=== PATIENT | female | born 1945 | race Caucasian/White ===

== ENCOUNTER 2019-11-11 09:00 | Outpatient (CLI) | payer MEDICARE, SELFPAY ==
--- NOTE | ~2019-11-11 | DEXA_ITS ---
Bone Density Report Name: Annabelle Peraza Age: 74 Sex: Female Ethnicity: White Date of : 1945 Indication: monitoring treatment; height loss; cancer; asthma or emphysema; Referring Provider: Ada Martinez Study: Bone densitometry was performed. Exam Date: November 11, 2019 Accession number: [id number] Bone Density: Region BMD T-score Z-score Classification AP Spine (L1, L2) 0.994 0.1 2.4 Normal Femoral Neck (Left) 0.750 -0.9 1.2 Normal Total Hip (Left) 0.798 -1.2 0.7 Osteopenia Total Hip Bilateral Avg 0.783 -1.3 0.6 Osteopenia Femoral Neck (Right) 0.701 -1.3 0.8 Osteopenia Total Hip (Right) 0.768 -1.4 0.4 Osteopenia World Health Organization criteria for BMD impression classify patients as: Normal (T-score at or above -1.0), Osteopenia (T-score between -1.0 and -2.5), or Osteoporosis (T-score at or below -2.5). 10-year Fracture Risk: FRAX not reported because: Treated for osteoporosis Previous Exams: Region Exam Age BMD T-score BMD Change BMD Change Date g/cm2 vs Baseline vs Previous AP Spine(L1, L2) 11/11/2019 74 0.994 0.1 0.059(6.3%)# 0.059(6.3%)# 02/11/2009 63 0.935 -0.4 Total Hip(Left) 11/11/2019 74 0.798 -1.2 -0.065(-7.6%)# -0.065(-7.6%)# 02/11/2009 63 0.864 -0.6 Total Hip(Right) 11/11/2019 74 0.768 -1.4 -0.066(-7.9%)# -0.066(-7.9%)# 02/11/2009 63 0.835 -0.9 *Denotes significance at 95% confidence level, LSC for AP Spine = 0.022 g/cm2, LSC for Total Hip = 0.027 g/cm2 Clinical Information Provided by Patient: Is being treated for osteoporosis Has the following medical conditions: Asthma or Emphysema, Cancer Patient maximum height was 62 Menopause Age: 41 No regular weight bearing exercise Drinks caffeinated beverages Onset of menses at age 12 Number of children 3 Impression: The patient has low bone mass, based on the Right Total Hip T-score. No significant bone loss was observed. Discussion: PATIENT UNDER TREATMENT WITH NO SIGNIFICANT BMD LOSS SINCE LAST EXAM. In an untreated patient, BMD typically declines with age. A lack of decline or gain is usually a sign that treatment is efficacious and fracture risk is reduced. It is important to ask patients whether they are taking their medications and to encourage continued and appropriate compliance with their osteoporosis therapies to reduce fracture risk. It is also important to review their risk factors and encourage appropriate calcium and vitamin D intakes, exe
== END 2019-11-11 09:01 | disposition home or self-care (01) ==
LOC: ANHIMG 09:06
PROVIDERS: PCP Family Medicine; Visit Provider Family Medicine
DX: Z78.0 Asymptomatic menopausal state (principal); M85.89 Other specified disorders of bone density and structure, multiple sites
CPT/HCPCS: 77080

== ENCOUNTER 2019-12-16 10:18 | Outpatient (CLI) | payer MEDICARE, SELFPAY ==
--- NOTE | ~2019-12-16 | MM_ITS ---
EXAMINATION: MM screening [facility] BI w fito HISTORY: Screening mammogram TECHNIQUE: Craniocaudal and mediolateral oblique 3-D tomosynthesis images were obtained and synthetic 2-D images were generated. CAD analysis was submitted and interpreted. COMPARISON: 12/06/2018, 12/04/2017, 11/21/2016 BREAST PARENCHYMAL COMPOSITION: There are scattered areas of fibroglandular density. FINDINGS: Scattered benign-appearing calcifications are present. There is no evidence of suspicious m ass, calcification, or architectural distortion to suggest malignancy in either breast. There has bee n no suspicious interval change. IMPRESSION: 1. No mammographic evidence of malignancy. 2. Recommend routine screening mammography in one year. BI-RADS Category 2: Benign finding(s). Reviewed, dictated and finalized at location A.
== END 2019-12-16 10:19 | disposition home or self-care (01) ==
LOC: ANHIMG 10:21
PROVIDERS: PCP Family Medicine
DX: Z12.31 Encounter for screening mammogram for malignant neoplasm of breast (principal)
CPT/HCPCS: 77063; 77067

== ENCOUNTER 2020-03-25 12:27 | Outpatient (CLI) | payer MEDICARE, SELFPAY ==
--- NOTE | ~2020-03-25 | CT_ITS ---
EXAMINATION: CT lung screening DATE: 03/25/2020 12:52 INDICATION: Personal history of nicotine dependence TECHNIQUE: Computed tomography (CT) of the chest was performed without intravenous contrast. The dose -length product was 102.25 mGy-cm. Automated exposure control and iterative reconstruction technique were employed. COMPARISON: CT dated 05/13/2019 FINDINGS: Severe emphysema. Scattered calcified pulmonary nodules and right hilar lymph nodes, consis tent with chronic granulomatous disease. There is atherosclerosis of the aorta and coronary arteries. Heart size normal. No significant pleural or pericardial effusion. There is left upper lobe scarring unchanged. There is a 4 mm) fissural nodule unchanged, image 56. No endobronchial lesions. Mild thor acic spondylosis. There are cholecystectomy changes. IMPRESSION: 1. Lung-RADS category 2: Benign appearance or behavior. Continue annual screening with noncontrast lo w-dose chest CT in 12 months. Reviewed, dictated and finalized at location A. IMPRESSION: 1. Lung-RADS category 2: Benign appearance or behavior. Continue annual screeni ng with noncontrast low-dose chest CT in 12 months.
== END 2020-03-25 12:28 | disposition home or self-care (01) ==
PROVIDERS: PCP Family Medicine; Visit Provider Nurse Practitioner Family
DX: Z12.2 Encounter for screening for malignant neoplasm of respiratory organs (principal); Z87.891 Personal history of nicotine dependence
CPT/HCPCS: G0297

== ENCOUNTER 2020-10-19 10:17 | Outpatient (CLI) | payer MEDICARE, SELFPAY ==
--- NOTE | ~2020-10-19 | US_ITS ---
EXAMINATION: US carotid duplex BI DATE: 10/19/2020 11:02 INDICATION: Unspecified symptoms and signs involving the circulatory system. TECHNIQUE: Grayscale, color Doppler, and pulsed Doppler images of the cervical carotid arteries were obtained. The degree of vessel stenosis is placed in one of the following categories: normal, <50%, 5 0-69%, >=70% but less than near-occlusion, near-occlusion, or total occlusion. Note that percent sten osis relative to normal distal artery lumen diameter is indirectly measured from velocity measurement s as described by Channing, et al. Radiology 2003; 229:340-346. COMPARISON: None. FINDINGS: RIGHT: The right common carotid artery (CCA) peak systolic velocity (PSV) is 51 cm/s. The right internal car otid artery (ICA) PSV is 45 cm/s. The right ICA end-diastolic velocity (EDV) is 14 cm/s. The right IC A/CCA PSV ratio is 0.9. The ICA lumen is obscured by shadowing plaque. There is antegrade flow in the right vertebral artery. LEFT: The left CCA PSV is 87 cm/s. The left ICA PSV is 182 cm/s. The left ICA EDV is 42 cm/s. The left ICA/ CCA PSV ratio is 2.1. Grayscale and color Doppler images yield an estimate of >=50% diameter reductio n from plaque in the ICA. There is antegrade flow in the left vertebral artery. IMPRESSION: 1. <50% stenosis in the right internal carotid artery. 2. 50-69% stenosis in the left internal carotid artery. Reviewed, dictated and finalized at location B.
== END 2020-10-19 10:18 | disposition home or self-care (01) ==
PROVIDERS: PCP Internal Medicine; Visit Provider Internal Medicine
DX: I65.23 Occlusion and stenosis of bilateral carotid arteries (principal)
CPT/HCPCS: 93880

== ENCOUNTER 2021-01-27 09:34 | Outpatient (CLI) | payer MEDICARE, SELFPAY ==
--- NOTE | ~2021-01-27 | US_ITS ---
US retroperitoneal comp 01/27/2021 13:58 Procedure: Realtime transabdominal ultrasound of the kidneys and bladder. Indication: Chronic kidney disease Comparison: 10/19/2014 Findings: Renal echotexture is normal bilaterally without hydronephrosis, contour deforming mass or r enal calculus. The right kidney measures 11.6 cm and left kidney measures 10.8 cm. Bladder is not we ll distended for evaluation. Impression: 1: Unremarkable renal ultrasound. No stones, masses or hydronephrosis. Reviewed, dictated and finalized at location A. Impression: 1: Unremarkable renal ultrasound. No stones, masses or hydronephrosis.
--- NOTE | ~2021-01-27 | MM_ITS ---
EXAMINATION: MM screening [facility] BI w fito HISTORY: Screening mammogram TECHNIQUE: Craniocaudal and mediolateral oblique 3-D tomosynthesis images were obtained and synthetic 2-D images were generated. CAD analysis was submitted and interpreted. COMPARISON: 620 , 12/06/2018, 12/04/2017 bilateral digital screening mammogram examinations BREAST PARENCHYMAL COMPOSITION: There are scattered areas of fibroglandular density. FINDINGS: Biopsy marker on the right; history of prior benign right breast biopsy. Scattered bilateral benign calcifications. Possible 5 mm mass anterior upper mid left breast (MLO Tomosynthesis image 30/71). Diagnostic left ma mmogram and possibly left breast ultrasound examination are recommended. Otherwise there is no evidence of suspicious mass, calcification, or architectural distortion to sugg est malignancy in either breast. There has been no other suspicious interval change. IMPRESSION: 1. Possible 5 mm left breast mass 2. Diagnostic left mammogram and possible left breast ultrasound examination are recommended BI-RADS Category 0: Incomplete: Needs additional imaging evaluation. Reviewed, dictated and finalized at location A. IMPRESSION: 1. Possible 5 mm left breast mass 2. Diagnostic left mammogram and possible left breast ultrasound examination ar ruby recommended BI-RADS Category 0: Incomplete: Needs additional imaging evaluation.
== END 2021-01-27 09:35 | disposition home or self-care (01) ==
PROVIDERS: PCP Internal Medicine; Visit Provider Internal Medicine
DX: Z12.31 Encounter for screening mammogram for malignant neoplasm of breast (principal); R92.8 Other abnormal and inconclusive findings on diagnostic imaging of breast; N18.9 Chronic kidney disease, unspecified
CPT/HCPCS: 76770; 77063; 77067

== ENCOUNTER 2021-02-27 00:23 | Inpatient (IN) | payer MEDICARE, SELFPAY ==
[2021-02-27] VITALS (28 sets, daily range): BP systolic 90–134; BP diastolic 49–98; PULSE 82–120; RESP 17–34; TEMP 36.6–36.8; O2SAT 82–96; BMI 28.8
--- NOTE | ~2021-02-27 | XR_ITS ---
EXAMINATION: XR abdomen NG/feed tube insert DATE: 03/02/2021 09:45 INDICATION: Feeding tube placement TECHNIQUE: A supine view of the abdomen and lower chest was obtained for evaluation of feeding tube placement. COMPARISON: None. FINDINGS: Feeding tube tip in proximal side port in the body of the stomach. Paucity of bowel gas in the visual ized abdomen. Cholecystectomy clips in the right upper quadrant. Coarse reticular opacities in the mi d and lower lung zones consistent with pulmonary edema and/or pneumonia superimposed over emphysema. Heart size is normal. IMPRESSION: 1. Feeding tube tip in the stomach. 2. Diffuse bilateral lung disease which could represent pulmonary edema and/or pneumonia superimposed over emphysema. Reviewed, dictated and finalized at location A.
--- NOTE | ~2021-02-27 | XR_ITS ---
EXAMINATION: XR chest 1V portable EXAM DATE: 03/01/2021 05:32 INDICATION: COVID pneumonia, hypoxia. Hypoxia. TECHNIQUE: Portable AP frontal chest x-ray was obtained. Comparison is made to prior examination from 02/27/2021. FINDINGS: Diffuse abnormal reticulation superimposed on known emphysema and chronic hyperinflation. T his appears stable or with slight interval progression. Probably edema and/or pneumonia. No pneumotho rax or pleural effusion. Cardiomediastinal silhouette is normal. There are no osseous abnormalities i dentified. IMPRESSION: 1. Diffuse abnormal reticulation, edema and/or pneumonia. 2. Emphysema. Hyperinflation. Reviewed, dictated and finalized at location D.
--- NOTE | ~2021-02-27 | XR_ITS ---
EXAMINATION: XR chest 1V portable INDICATION: Respiratory failure TECHNIQUE: Portable AP chest at 0815 hours COMPARISON: 03/03/2021 FINDINGS: The endotracheal tube ends approximately 5.7 cm above the cyril. The nasogastric tube is f ollowed as far as the stomach. Its tip is beyond the inferior margin of the radiograph. A right upper extremity PICC has been inserted which ends with its tip in the midsuperior vena cava. A small right pleural effusion is present. There is no pneumothorax. Right basilar airspace opacities persist with slight worsening. Other diffuse airspace opacities are not significantly changed. IMPRESSION: 1. Worsening opacities of the right lung base, consistent with atelectasis versus pneumonia. 2. Otherwise stable diffuse lung disease, consistent with pneumonia and/or pulmonary edema and/or acu te respiratory distress syndrome (ARDS). 3. Right upper extremity PICC insertion. Reviewed, dictated and finalized at location A. IMPRESSION: 1. Worsening opacities of the right lung base, consistent with atelectasis vers us pneumonia. 2. Otherwise stable diffuse lung disease, consistent with pneumonia and/or pulm onary edema and/or acute respiratory distress syndrome (ARDS). 3. Right upper extremity PICC insertion.
--- NOTE | ~2021-02-27 | XR_ITS ---
EXAMINATION: XR chest 1V portable INDICATION: Respiratory failure TECHNIQUE: Portable AP chest at 0506 hours COMPARISON: 03/02/2021 FINDINGS: The endotracheal tube ends approximately 4.8 cm above the cyril. The nasogastric tube is f ollowed as far as the stomach. Its tip is beyond the inferior margin of the radiograph. Diffuse opaci ties persist throughout all lung zones with slight worsening in the right lung base. There is no pleu ral effusion or pneumothorax. The cardiomediastinal silhouette is stable. IMPRESSION: 1. Diffuse lung disease with interval worsening, consistent with pneumonia and/or pulmonary edema and /or acute respiratory distress syndrome (ARDS). Reviewed, dictated and finalized at location A. IMPRESSION: 1. Diffuse lung disease with interval worsening, consistent with pneumonia and/ or pulmonary edema and/or acute respiratory distress syndrome (ARDS).
--- NOTE | ~2021-02-27 | NM_ITS ---
EXAMINATION: NM pulmonary perfusion DATE: 02/27/2021 07:20 INDICATION: Dyspnea and computed TECHNIQUE: 5.1 mCi Tc-99m MAA by intravenous route. Scintigraphic images of the chest were obtained. COMPARISON: Chest radiograph dated 02/27/[address] dated 03/25/2020 FINDINGS: There is relatively homogeneous perfusion throughout the lungs, for nonsegmental relatively decreased perfusion in the upper lung zones corresponding to the most severe regions of diffuse emphysema on p rior chest radiograph and CT. No other discrete perfusion defects identified. IMPRESSION: 1. Low probability for pulmonary embolism. Reviewed, dictated and finalized at location A.
--- NOTE | ~2021-02-27 | XR_ITS ---
EXAMINATION: XR chest 1V portable DATE: 02/27/2021 01:01 INDICATION: Cough and shortness of breath TECHNIQUE: frontal view of the chest was obtained. COMPARISON: Chest CT dated 03/25/2020 FINDINGS: Diffuse increased interstitial pattern throughout both lungs. There is increased lucency and architec tural distortion in the left upper and right mid and upper lung zones consistent with severe emphysem a. No pleural effusion or pneumothorax. The cardiomediastinal silhouette is normal. IMPRESSION: 1. Severe emphysema. 2. Diffuse increased interstitial opacities which could represent pulmonary edema and/or pneumonia. Reviewed, dictated and finalized at location A. IMPRESSION: 1. Severe emphysema. 2. Diffuse increased interstitial opacities which could represent pulmonary serene ma and/or pneumonia.
--- NOTE | ~2021-02-27 | CT_ITS ---
EXAMINATION: CT brain wo con DATE: 02/27/2021 04:39 INDICATION: Altered mental status. COVID positive. TECHNIQUE: Computed tomography (CT) of the head was performed without intravenous contrast. Sagittal and coronal reconstructions were performed. The mA was adjusted according to patient size. Iterative reconstruction technique was employed. The dose-length product was 605.33 mGy-cm. COMPARISON: None FINDINGS: No acute intracranial hemorrhage, acute infarction or abnormal extra axial fluid collection. Ventricl es are normal and symmetric. No mass/mass effect. Mild mucoperiosteal thickening the bilateral ethmoi d and maxillary sinuses. Changes of bilateral intraocular lens replacement. Mastoid air cells and mid dle ear cavities are clear. Intracranial calcified cerebral atherosclerosis is noted. IMPRESSION: 1. No acute intracranial process. Reviewed, dictated and finalized at location A.
--- NOTE | ~2021-02-27 | XR_ITS ---
EXAMINATION: XR chest ET placement INDICATION: Shortness of breath, possible pneumothorax TECHNIQUE: Portable AP chest at 1138 hours COMPARISON: 0506 hours FINDINGS: The endotracheal tube ends approximately 2.4 cm above the cyril. The nasogastric tube is f ollowed as far as the stomach. Its tip is beyond the inferior margin of the radiograph. No pleural ef fusion or pneumothorax is identified. There are diffuse opacities throughout all lung zones which per sists without significant change. The cardiomediastinal silhouette is stable. IMPRESSION: 1. Stable diffuse lung disease, consistent with pneumonia and/or pulmonary edema and/or acute respira tory distress syndrome (ARDS). Reviewed, dictated and finalized at location A. IMPRESSION: 1. Stable diffuse lung disease, consistent with pneumonia and/or pulmonary evita a and/or acute respiratory distress syndrome (ARDS).
--- NOTE | ~2021-02-27 | XR_ITS ---
EXAMINATION: XR chest ET placement EXAM DATE: 03/02/2021 09:24 INDICATION: Intubation, COVID pneumonia. TECHNIQUE: Portable AP frontal chest x-ray was obtained. Comparison is made to prior examination from 03/01/2021, 02/27. FINDINGS: Endotracheal tube is just in the right mainstem bronchus, should be retracted 3 cm (I call ed this finding to the intensive care unit, nurse states that Law Zayas MD looked at the image an d retracted the tube). There is a nasogastric tube seen with tip collimated off the study, but below the left hemidiaphragm. Extensive bilateral abnormal reticulation consistent with edema and/or pneumonia. Small right pleura l effusion. There is no pneumothorax suspected. Cardiomediastinal silhouette is normal. The bones and soft tissues are unremarkable. Mild progression in airspace disease compared to prior studies. IMPRESSION: 1. ET tube in right mainstem, reportedly was retracted already. 2. Diffuse COVID pneumonia, mild interval progression. Reviewed, dictated and finalized at location B.
--- NOTE | 2021-02-27 00:28 | PC.NURSE ---
call w/ any updates on pt Maxwell [phone]
--- NOTE | 2021-02-27 00:44 | ECG_ITS ---
Measurements Intervals [place] Rate: 111 P: 65 MN: 152 QRS: 82 QRSD: 74 T: 52 QT: 308 QTc: 419 Interpretive Statements SINUS TACHYCARDIA POSSIBLE LEFT ATRIAL ENLARGEMENT INCOMPLETE RIGHT BUNDLE BRANCH BLOCK DELAYED PRECORDIAL R/S TRANSITION BASELINE ARTIFACT- I, II, III, AVR, AVL, AVF, V4-V6 ABNORMAL ECG Electronically Signed On 02-27-2021 8:28:08 CDT by Kush Shankar D.O.
--- NOTE | 2021-02-27 00:48 | PC.NURSE ---
pt placed on hi flow nc at 10L O2. by respiratory therapist.
--- NOTE | 2021-02-27 01:43 | ED.SOB ---
HPI - SOB/Dyspnea General Chief Complaint: Shortness of Breath/Dyspnea Stated Complaint: sob Time Seen by Provider: 02/27/21 00:32 Source: RN notes reviewed History of Present Illness HPI Narrative: Patient presents to emergency department from home for shortness of breath. History is per the patient as well as her Maxwell who I spoke with on the phone per the the patient began to become ill 2 days ago he had been positive for Covid last week and they were concerned when the patient began to become short of breath patient does have a history of COPD and is normally on 2 L nasal cannula with activity and sleeping at home she had began to use her oxygen at home patient states that she has been feeling more short of breath she denies any fevers or chills or chest pain she denies any tobacco use Related Data Home Medications Medication Instructions Recorded Confirmed L.acid,gasseri,plant,rham-B.animalis-cran 1 cap PO DAILY 10/12/20 02/11/21 5 billion cell-250mg capsule cranberry fruit concentrate 250 mg 250 mg PO BID tablet 10/12/20 02/11/21 chewable tablet mecobalamin (vitamin B12) 1,000 mcg PO DAILY 02/11/21 02/11/21 Allergies Allergy/AdvReac Type Severity Reaction Status Date / Time Sulfa (Sulfonamide Allergy Severe Itching Verified 02/27/21 00:49 Antibiotics) lisinopril AdvReac Cough Verified 02/27/21 00:49 Review of Systems Review of Systems: Gen.: Denies fevers or chills ENT: Denies congestion Respiratory: HPI CV: Denies chest pain or palpitations GI: Denies abdominal pain nausea, emesis or diarrhea Musculoskeletal: Denies back pain or muscle pain Neuro: Denies numbness, tingling, weakness or focal weakness Skin: Denies rash Except as documented, all other systems reviewed and negative PMF Past Medical History Medical History Chronic obstructive pulmonary disease, unspecified Essential (primary) hypertension Gastroesophageal reflux disease with esophagitis Hyperlipidemia due to type 2 diabetes mellitus Hypersomnia due to another medical condition Hypothyroidism, unspecified Lung nodules Osteoporosis Polyosteoarthritis, unspecified Type 2 diabetes mellitus with other circulatory complications Vitamin D deficiency, unspecified Surgical History Surgical History History of cholecystectomy Family History Family History Father Family history of coronary artery disease, Onset Age: 57 Acute myocardial infarction, Onset Age: 57 Grandparent Family history of coronary artery disease, Onset Age: 30 Mother Patient's mother is in good health Daughter Lung cancer Sibling Colon cancer Other Family history of Alzheimer's disease Social History Social History Social History: . Spends [place]wartz in [place]. Smoking packs per day: 1 Smoking cigarettes per day: 20.0 Years smoked: 40 Smoking pack-years: 40.00 Smoking status: Former smoker Tobacco type: cigarettes Second hand tobacco smoke exposure: No Smoking end date: 07/02/05 Alcohol intake: current Drinks per week: 1 Alcohol use details: social: 1 drink w/ dinner Substance use: never Gender identity (if verbalized by the patient): Female Spiritual care concerns: No Agree to blood products: Yes Exam Narrative: APPEARANCE: Moderate respiratory distress sitting upright in bed HEENT: Normocephalic, atraumatic OMM RESPIRATORY: No respiratory distress sitting upright in bed speaking in short phrases CARDIOVASCULAR: Regular rate and rhythm without murmurs rubs or gallops. ABDOMINAL: Soft, nontender, nondistended, no rebound or guarding MUSCULOSKELETAl: Moves all extremities. No clubbing, cyanosis or edema. NEURO: Awake and alert x 2. Following commands, speech no
[2021-02-27 01:47] LABS: Lactic Acid Reflex 1.5 mmol/L (0.7-2.1)
[2021-02-27 01:53] LABS: Alveolar/Arterial O2 Gradient 440.3 mmHg; Base Excess ABG -10.2 mEq/l (+/-2.0); Fractional Inspired Oxygen 80 %; HCO3 ABG 14.5 mEq/l (22.0-26.0); Oxygen Content ABG 19.3 %vol (16.0-22.0); Oxygen Saturation ABG 97.1 % (95.0-100.0); Oxyhemoglobin 95.6 % THb (90.0-100.0); PCO2 ABG 29.2 mmHg (35.0-45.0); PO2 ABG 99.4 mmHg (80.0-100.0); PO2 FiO2 Ratio Arterial Blood 1.24 %; Total Hemoglobin 14.3 g/dL (12.0-18.0); pH ABG 7.313 (7.350-7.450)
[2021-02-27 01:54] LABS: Alanine Aminotransferase 59 U/L (4-35); Alkaline Phosphatase 103 U/L (38-126); Anion Gap 14 mmol/L (8-16); Aspartate Amino Transferase 92 U/L (14-36); Bilirubin,Total 0.7 mg/dL (0.2-1.3); Blood Urea Nitrogen 52 mg/dL (7-17); Calcium 8.5 mg/dL (8.4-10.2); Carbon Dioxide 17 mmol/L (22-30); Chloride 109 mmol/L (98-107); Estimated Glomerular Filt Rate 16; Glucose 142 mg/dL (65-110); Lactate Dehydrogenase 1534 U/L (313-618); Potassium 4.3 mmol/L (3.4-5.0); Sodium 140 mmol/L (137-145)
[2021-02-27 01:54] LABS: Modified Allen's Test Pass; Site Drawn RIGHT RADIAL
[2021-02-27 01:55] LABS: Device NON-INVASIVE VENT; Non-Invasive Expiratory Pressure 6 CMH2O; Non-Invasive Inspiratory Pressure 10 CMH2O; Non-Invasive Vent Rate 12 /MIN
[2021-02-27 02:00] LABS: Basophils Percent Auto 0.2 % (0.2-1.2); Eosinophils Percent Auto 0.1 % (0-4.4); Hematocrit 43.4 % (37.0-47.0); Hemoglobin 13.9 g/dL (12.0-15.0); Immature Granulocyte Absolute 0.07 K/mm3 (0.00-0.031); Immature Granulocyte Percent A 0.7 % (0-0.5); Lymphocytes Absolute Auto 0.52 K/mm3 (0.9-3.2); Lymphocytes Percent Auto 4.9 % (18.3-44.2); Mean Corpuscular Hemoglobin 31.4 pg (26-34); Mean Platelet Volume 10.8 fl (7.4-10.4); Monocytes Absolute Auto 0.4 K/mm3 (0.1-0.6); Neutrophils Absolute Auto 9.6 K/mm3 (1.3-6.7); Neutrophils Percent Auto 90.1 % (45.5-73.1); Platelet Count Result 235 k/mm3 (150-375); Red Blood Count 4.43 M/mm3 (4.2-5.4); Red Cell Distribution Width 14.3 % (11.5-14.5); White Blood Count 10.6 K/mm3 (4.5-10.0)
[2021-02-27 02:07] LABS: CRP 26.9 mg/dL (<1.0)
[2021-02-27 02:41] LABS: EDCOVIDSCREEN Positive (Negative)
[2021-02-27] MEDS: MORPHINE SULFATE (*CRX) 2 MG/ML INJ 1 MG IV PUSH (02:48)
[2021-02-27] MEDS: SODIUM CHLORIDE 0.9% IV 1,000 ML 999 ML IV CONT (04:02)
[2021-02-27 04:03] LABS: INR 0.9; Prothrombin Time 12.2 Seconds (11.1-14.7)
[2021-02-27 04:04] LABS: Partial Thromboplastin Time 32.4 SECONDS (22.3-36.8)
[2021-02-27 04:07] LABS: D Dimer 2.11 ug/mL (<0.48)
--- NOTE | 2021-02-27 04:10 | PC.NURSE ---
Spoke with patient's Maxwell who states she would not want to be intubated but would want CPR. PT is not not alert and oriented during this stay and Maxwell states she was intubated a few years ago and told him she would never want that again.
--- NOTE | 2021-02-27 04:10 | PC.NURSE ---
Pt put on bed alarm at this time.
[2021-02-27] MEDS: IPRATROPIUM BR 0.02% INH SOLN 0.5 MG/2.5 ML VIAL INHALATION ×2 (04:23→06:23)
[2021-02-27] MEDS: ALBUTEROL SULFATE NEB 2.5 MG/0.5 ML INH 5 MG INHALATION ×2 (04:23→06:23)
--- NOTE | 2021-02-27 04:23 | PC.NURSE ---
Pt to imaging at this time.
[2021-02-27 04:39] LABS: Add Urine Microscopic? YES; Appearance Urine Clear (Clear); Bacteria Urine Trace /hpf; Bilirubin Urine Negative (Negative); Blood Urine 1+ (Negative); Cellular Casts Urine Present /lpf; Color Urine Yellow (Yellow); Glucose Urine UA 3+ mg/dL (Negative); Ketones Urine Trace mg/dL (Negative); Leukocyte Esterase Ur Negative LEU/UL (Negative); Mucus Urine Rare /lpf; Nitrate Urine Negative (Negative); Protein Urine 2+ mg/dL (Negative); Squamous Epithelial Cell Urine Rare /hpf (Few); Urobilinogen Urine Negative mg/dL (<2.0); WBC Urine 21-30 /hpf
--- NOTE | 2021-02-27 05:10 | PC.NURSE ---
Maxwell Peraza phone number [phone].
--- NOTE | 2021-02-27 06:25 | PC.NURSE ---
Respiratory to room at this time.
--- NOTE | 2021-02-27 06:43 | PM.IMHP ---
H&P: HPI History of Present Illness Date/Time: 02/27/21 06:43 Chief Complaint: Shortness of breath Narrative: Patient presents to emergency department from home with progressive shortness of breath. Patient started becoming 6 2 days ago and was tested for COVID approximately a week ago. She does have history of COPD and normally with 2 L oxygen with activity and at night. She has been feeling more short of breath and hence came to the ED for evaluation. She was noted to be hypoxic and was placed on high-flow nasal cannula oxygen initially and 6 L. She had also been placed on BiPAP but she did not tolerate it and hence was switched to high-flow nasal cannula. She is noted to have acute kidney injury with creatinine of 2.9 baseline being 1.2. She does not want to be intubated but CPR is okay. She denies any fever or chills. She denies any chest pain. She is admitted for further evaluation and management. Review of Systems Review of Systems: - CONSTITUTIONAL: Denies weight loss, fever and chills. - HEENT: Denies changes in vision and hearing - RESPIRATORY: Reports SOB and cough. - CV: Denies palpitations and CP. - GI: Denies abdominal pain, nausea, vomiting and diarrhea. - : Denies dysuria and urinary frequency. - MSK: Denies myalgia and joint pain. - SKIN: Denies rash and pruritus. - NEUROLOGICAL: Denies headache and syncope. - PSYCHIATRIC: Denies recent changes in mood. Denies anxiety and depression. All systems reviewed & are unremarkable except as noted in HPI and below Constitutional: Constitutional: Reports fatigue and Reports weakness Neurologic: Reports weakness Endocrine: Endocrine: Reports fatigue [facility] Past Medical History Medical History Chronic obstructive pulmonary disease, unspecified Essential (primary) hypertension Gastroesophageal reflux disease with esophagitis Hyperlipidemia due to type 2 diabetes mellitus Hypersomnia due to another medical condition Hypothyroidism, unspecified Lung nodules Osteoporosis Polyosteoarthritis, unspecified Type 2 diabetes mellitus with other circulatory complications Vitamin D deficiency, unspecified Surgical History Surgical History History of cholecystectomy Family History Family History Father Family history of coronary artery disease, Onset Age: 57 Acute myocardial infarction, Onset Age: 57 Grandparent Family history of coronary artery disease, Onset Age: 30 Mother Patient's mother is in good health Daughter Lung cancer Sibling Colon cancer Other Family history of Alzheimer's disease Social History Social History Social History: . Spends schwartz in [place]. Smoking packs per day: 1 Smoking cigarettes per day: 20.0 Years smoked: 40 Smoking pack-years: 40.00 Smoking status: Former smoker Tobacco type: cigarettes Second hand tobacco smoke exposure: No Smoking end date: 07/02/05 Alcohol intake: current Drinks per week: 1 Alcohol use details: social: 1 drink w/ dinner Substance use: never Gender identity (if verbalized by the patient): Female Spiritual care concerns: No Agree to blood products: Yes Meds Home Medications and Allergies Home Medications Medication Instructions Recorded Confirmed Type albuterol sulfate See Rx Instructions .ROUTE 06/08/20 02/11/21 Rx .COMPLEX #750 ml L.acid,gasseri,plant,rham-B.animalis-cran 1 cap PO DAILY 10/12/20 02/11/21 History 5 billion cell-250mg capsule cranberry fruit concentrate 250 mg 250 mg PO BID tablet 10/12/20 02/11/21 History chewable tablet pantoprazole 40 mg tablet,delayed 40 mg PO QAM #90 tablet 11/01/20 02/11/21 Rx release levothyroxine 75 mcg tablet 75 mcg PO DAILY #90 tablet
--- NOTE | 2021-02-27 06:56 | PC.NURSE ---
Pt to VQ scan at this time
--- NOTE | 2021-02-27 07:19 | PC.NURSE ---
This patient, Annabelle Peraza, was admitted to IMU Room 201-01. Patient/family oriented to hospital policies and general routines including ID bracelet, bed and alarms, visiting hours, pain management, procedures, bathroom and other care routines, personal items, smoking policy, room service/diet, and visiting hours. Information on how to activate the Rapid Response Team has been discussed. Patient/Family are encouraged to report perceived risks to care and to ask questions if they do not understand what they are told or what they should do.
[2021-02-27 07:42] LABS: NT Pro B Type Natriuretic Pept 201 pg/mL (5-100)
[2021-02-27 08:13] LABS: Glucose Point of Care 170 mg/dl (65-105)
[2021-02-27] MEDS: SODIUM CHLORIDE 0.9% IV 1,000 ML 80 ML IV CONT (08:38)
[2021-02-27] MEDS: HEPARIN SODIUM 5,000 UNITS/ML VIAL 5000 UNITS SUB-Q ×3 (08:38→21:00)
[2021-02-27 08:51] LABS: Hemoglobin A1C 7.6 % (<5.7)
[2021-02-27] MEDS: WATER FOR IRRIGATION, STERILE 1,000 ML BOTTLE 1000 ML (09:44)
[2021-02-27] MEDS: ALBUTEROL SULFATE NEB 2.5 MG/0.5 ML INH INHALATION ×2 (10:13→17:24)
[2021-02-27] MEDS: LORazepam INJ (*CRX) 2 MG/ML VIAL 0.25 MG IV PUSH (11:06)
[2021-02-27 11:42] LABS: Glucose Point of Care 180 mg/dl (65-105)
--- NOTE | 2021-02-27 14:00 | PM.IMPN ---
Progress Note: A&P Assessment and Plan (1) Acute respiratory failure with hypoxia: Code(s): J96.01 - Acute respiratory failure with hypoxia Status: Acute (2) COVID-19: Code(s): U07.1 - COVID-19 Status: Acute (3) Acute renal insufficiency: Code(s): N28.9 - Disorder of kidney and ureter, unspecified Status: Acute (4) Chronic obstructive pulmonary disease, unspecified: Qualifiers: COPD type: emphysema Emphysema type: unspecified Qualified Code(s): J43.9 - Emphysema, unspecified Code(s): J44.9 - Chronic obstructive pulmonary disease, unspecified Status: Acute (5) Hypothyroidism, unspecified: Qualifiers: Hypothyroidism type: acquired Qualified Code(s): E03.9 - Hypothyroidism, unspecified Code(s): E03.9 - Hypothyroidism, unspecified Status: Acute (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: Code(s): E11.59 - Type 2 diabetes mellitus with other circulatory complications Status: Acute (7) Sepsis: Code(s): A41.9 - Sepsis, unspecified organism Status: Acute Additional Plan # Acute on chronic hypoxic respiratory failure baseline oxygen 2 L currently at 15 L high-flow nasal cannula. Underlying COPD and COVID-19 pneumonia. Decadron IV 6 mg daily. BiPAP as needed and as tolerated. She wants to be DNI however chest compression okay which was verified with the patient. D-dimer elevated. CTA could not be done due to renal dysfunction. VQ scan order pending result. # Elevated D-dimer see above # COVID-19 pneumonia elevated LDH CRP Decadron with renal function remdesivir is not indicated and she has been more than a week since positive # ELVIA on CKD stage 3 admission creatinine 2.9 baseline creatinine 1.2 # Metabolic acidosis # Sepsis related to above mild lactic acidosis noted # Diabetes mellitus type 2 at SSI # Hyperlipidemia # COPD with severe emphysema # GERD # DVT prophylaxis heparin subQ # Code status do not intubate but CPR okay Subjective Date/time seen: 02/27/21 14:00 Interval history: Agree with current A/P. Continue to monitor Objective Data Vital Signs Vital Signs: Vital Signs - 24 hr 02/27/21 00:37 02/27/21 00:47 02/27/21 01:49 Temperature 36.6 C Pulse Rate 120 H 119 H Respiratory Rate 23 H Blood Pressure 90/57 L Pulse Oximetry 90 91 02/27/21 02:08 02/27/21 02:33 02/27/21 03:33 Temperature Pulse Rate 114 H 117 H 106 H Respiratory Rate 18 22 H 17 Blood Pressure 134/98 H 125/82 119/62 Pulse Oximetry 82 L 92 96 02/27/21 04:10 02/27/21 04:52 02/27/21 05:49 Temperature Pulse Rate 106 H 107 H 101 H Respiratory Rate 22 H 22 H 24 H Blood Pressure 113/56 L 104/53 L 97/57 L Pulse Oximetry 90 93 91 02/27/21 05:54 02/27/21 06:15 02/27/21 06:20 Temperature Pulse Rate 100 98 Respiratory Rate 23 H 26 H Blood Pressure 104/72 100/90 Pulse Oximetry 92 02/27/21 06:26 02/27/21 06:29 02/27/21 06:33 Temperature Pulse Rate 102 H 103 H Respiratory Rate 26 H 20 Blood Pressure 123/66 Pulse Oximetry 92 92 02/27/21 08:00 02/27/21 10:14 02/27/21 11:42 Temperature 36.6 C 36.8 C Pulse Rate 82 106 H 101 H Respiratory Rate 34 H 26 H 18 Blood Pressure 98/49 L 121/52 L Pulse Oximetry 93 92 Intake/Output Intake/Output: Intake & Output 02/24/21 02/25/21 02/26/21 02/27/21 23:59 23:59 23:59 23:59 Intake Total 1000 Balance 1000 Meds/Results Medications: Active Medications Generic Name Dose Route Start Last Admin Trade Name Freq PRN Reason Stop Dose Admin Albuterol 2.5 mg 02/27/21 09:49 02/27/21 10:13 Albuterol Sulfate Neb 2.5 Mg/0.5 Ml Inh INHALATION 2.5 mg Q4HRT PRN Administration Shortness Of Breath Dexamethasone Sodium Phosphate 6 mg 02/28/21 09:00 Dexamethasone Sod Phos Inj 4 Mg/Ml Vial IV PUSH 03/08/21 09:01 DAILY JACKIE Dextrose 12.5 gm 02/27/21 06:56 Dextrose 50% 25 Gm/50 Ml S
[2021-02-27] MEDS: METOPROLOL SUCCINATE EXT REL 25 MG TABCR PO (15:13)
[2021-02-27 16:05] LABS: Glucose Point of Care 156 mg/dl (65-105)
[2021-02-27 17:16] LABS: Alveolar/Arterial O2 Gradient 510.1 mmHg; Base Excess ABG -8.6 mEq/l (+/-2.0); Device HIGH FLOW NASAL CANN; Fractional Inspired Oxygen 85 %; HCO3 ABG 16.5 mEq/l (22.0-26.0); Modified Allen's Test Pass; Oxygen Saturation ABG 89.7 % (95.0-100.0); Oxyhemoglobin 89.5 % THb (90.0-100.0); PCO2 ABG 33.4 mmHg (35.0-45.0); PO2 ABG 61.3 mmHg (80.0-100.0); PO2 FiO2 Ratio Arterial Blood 0.72 %; Site Drawn RIGHT RADIAL; Total Hemoglobin 14.3 g/dL (12.0-18.0); pH ABG 7.312 (7.350-7.450)
[2021-02-27] MEDS: LORazepam INJ (*CRX) 2 MG/ML VIAL 0.5 MG IV PUSH (18:17)
[2021-02-27 20:52] LABS: Glucose Point of Care 148 mg/dl (65-105)
[2021-02-28] VITALS (20 sets, daily range): BP systolic 112–154; BP diastolic 56–81; PULSE 60–110; RESP 16–32; TEMP 36.1–37.2; O2SAT 91–97
[2021-02-28] MEDS: SODIUM CHLORIDE 0.9% IV 1,000 ML 80 ML IV CONT ×2 (00:25→10:24)
[2021-02-28] MEDS: LORazepam INJ (*CRX) 2 MG/ML VIAL 0.5 MG IV PUSH ×3 (01:30→23:33)
[2021-02-28] MEDS: HEPARIN SODIUM 5,000 UNITS/ML VIAL 5000 UNITS SUB-Q ×3 (05:10→21:15)
[2021-02-28 05:32] LABS: Base Excess ABG -6.9 mEq/l (+/-2.0); Fractional Inspired Oxygen 60 %; HCO3 ABG 20.5 mEq/l (22.0-26.0); Oxygen Content ABG 17.4 %vol (16.0-22.0); Oxygen Saturation ABG 90.5 % (95.0-100.0); Oxyhemoglobin 90.5 % THb (90.0-100.0); PCO2 ABG 48.6 mmHg (35.0-45.0); PO2 ABG 68.3 mmHg (80.0-100.0); PO2 FiO2 Ratio Arterial Blood 1.14 %; Total Hemoglobin 13.7 g/dL (12.0-18.0)
[2021-02-28 05:34] LABS: Device NON-INVASIVE VENT; Modified Allen's Test Pass; Non-Invasive Expiratory Pressure 6 CMH2O; Non-Invasive Inspiratory Pressure 12 CMH2O; Non-Invasive Vent Rate 16 /MIN; Site Drawn RIGHT RADIAL; pH ABG 7.243 (7.350-7.450)
[2021-02-28 08:13] LABS: Glucose Point of Care 129 mg/dl (65-105)
[2021-02-28 08:39] LABS: Basophils Percent Auto 0.2 % (0.2-1.2); Hematocrit 44.9 % (37.0-47.0); Hemoglobin 13.8 g/dL (12.0-15.0); Immature Granulocyte Absolute 0.06 K/mm3 (0.00-0.031); Immature Granulocyte Percent A 0.7 % (0-0.5); Immature Platelet Fraction Pct 3.8 % (0.9-11.2); Lymphocytes Absolute Auto 0.56 K/mm3 (0.9-3.2); Lymphocytes Percent Auto 6.9 % (18.3-44.2); Mean Corpuscular HGB Conc 30.7 g/dl (32-36); Mean Corpuscular Hemoglobin 31.5 pg (26-34); Mean Corpuscular Volume 102.5 fl (80-100); Mean Platelet Volume 11.1 fl (7.4-10.4); Monocytes Absolute Auto 0.7 K/mm3 (0.1-0.6); Monocytes Percent Auto 8.5 % (2.6-8.5); Neutrophils Absolute Auto 6.8 K/mm3 (1.3-6.7); Neutrophils Percent Auto 83.7 % (45.5-73.1); Platelet Count Result 223 k/mm3 (150-375); Red Blood Count 4.38 M/mm3 (4.2-5.4); Red Cell Distribution Width 14.7 % (11.5-14.5); White Blood Count 8.1 K/mm3 (4.5-10.0)
[2021-02-28 08:49] LABS: Alanine Aminotransferase 49 U/L (4-35); Albumin Level 3.5 g/dL (3.5-5.1); Alkaline Phosphatase 85 U/L (38-126); Anion Gap 12 mmol/L (8-16); Aspartate Amino Transferase 75 U/L (14-36); Bilirubin,Total 0.6 mg/dL (0.2-1.3); Blood Urea Nitrogen 44 mg/dL (7-17); Calcium 8.8 mg/dL (8.4-10.2); Carbon Dioxide 18 mmol/L (22-30); Chloride 115 mmol/L (98-107); Estimated CRCL calculation 28 ml/min; Estimated Glomerular Filt Rate 40; Glucose 135 mg/dL (65-110); Phosphorus 4.3 mg/dL (2.5-4.5); Potassium 4.7 mmol/L (3.4-5.0); Sodium 145 mmol/L (137-145)
[2021-02-28] MEDS: DEXAMETHASONE SOD PHOS INJ 4 MG/ML VIAL 6 MG IV PUSH (10:23)
[2021-02-28 11:36] LABS: Alveolar/Arterial O2 Gradient 305.8 mmHg; Base Excess ABG -5.3 mEq/l (+/-2.0); Carboxyhemoglobin 0.3 % THb (0-2.0); Fractional Inspired Oxygen 60 %; HCO3 ABG 21.4 mEq/l (22.0-26.0); Methemoglobin ABG 0.4 %THb (0-1.5); Oxygen Content ABG 17.4 %vol (16.0-22.0); Oxygen Saturation ABG 92.3 % (95.0-100.0); Oxyhemoglobin 91.6 % THb (90.0-100.0); PCO2 ABG 46.2 mmHg (35.0-45.0); PO2 ABG 71.2 mmHg (80.0-100.0); PO2 FiO2 Ratio Arterial Blood 1.19 %; Reduced Hemoglobin 7.7 %THb (0-5.0); Total Hemoglobin 13.5 g/dL (12.0-18.0)
[2021-02-28 11:37] LABS: pH ABG 7.283 (7.350-7.450)
[2021-02-28 11:37] LABS: Glucose Point of Care 117 mg/dl (65-105)
[2021-02-28 11:38] LABS: Device NON-INVASIVE VENT; Modified Allen's Test Unable to perform; Non-Invasive Expiratory Pressure 6 CMH2O; Non-Invasive Inspiratory Pressure 12 CMH2O; Non-Invasive Vent Rate 16 /MIN; Site Drawn RIGHT RADIAL
[2021-02-28 16:04] LABS: Glucose Point of Care 130 mg/dl (65-105)
--- NOTE | 2021-02-28 16:40 | PM.IMPN ---
Progress Note: A&P Assessment and Plan (1) Acute respiratory failure with hypoxia: Code(s): J96.01 - Acute respiratory failure with hypoxia Status: Acute Assessment and Plan: secondary to COVID-19 pneumonia. Patient is currently on BiPAP around the clock. Patient is a do not intubate order. As such, there is no benefit in transferring to ICU. Discussed with nursing. Will continue to monitor on BiPAP, and treat COVID with steroids. DVT prophylaxis with heparin. Hold IV fluids. Will discuss with family, poor prognosis. (2) COVID-19: Code(s): U07.1 - COVID-19 Status: Acute Assessment and Plan: Continue IV steroids. Around the clock BiPAP. Q 4 hour breathing treatments. Will discuss with family, poor prognosis. (3) Acute renal insufficiency: Code(s): N28.9 - Disorder of kidney and ureter, unspecified Status: Acute Assessment and Plan: Greatly improved, 2.9 yesterday, with fluid hydration 1.3 today. Will stop IV fluids, as edema may be contributing to respiratory distress. Trend creatinine in the morning. (4) Chronic obstructive pulmonary disease, unspecified: Qualifiers: COPD type: emphysema Emphysema type: unspecified Qualified Code(s): J43.9 - Emphysema, unspecified Code(s): J44.9 - Chronic obstructive pulmonary disease, unspecified Status: Acute Assessment and Plan: Steroids would help with decompensation. Q 4 DuoNeb. BiPAP, wean as tolerated, poor prognosis. (5) Hypothyroidism, unspecified: Qualifiers: Hypothyroidism type: acquired Qualified Code(s): E03.9 - Hypothyroidism, unspecified Code(s): E03.9 - Hypothyroidism, unspecified Status: Acute (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: Code(s): E11.59 - Type 2 diabetes mellitus with other circulatory complications Status: Acute Additional Plan Will call , Turner, and notify the overall prognosis is poor. She is requiring continuous BiPAP, and does not wish to be intubated if that need arises. We will continue BiPAP support, in addition to steroids and Q 4 hour breathing treatments. Subjective Date/time seen: 02/28/21 16:40 no meaningful interview possible with patient. She is not able to answer the question of her name or where she is or what time it is. Review of Systems Review of Systems: No meaningful interview possible ROS unobtainable: Yes unobtainable due to mental status Exam Const: General: in distress Resp: Effort & Inspection: abnormal respiratory effort Other: patient is in respiratory distress, BiPAP is in place Cardio: Rate: abnormal rate Rhythm: regular rhythm GI: GI Palp: Yes Soft to palpation and No Tenderness to palpation present (GI) Neuro: Speech: No normal speech Objective Data Vital Signs Vital Signs: Vital Signs - 24 hr 02/27/21 17:24 02/27/21 17:34 02/27/21 18:00 Temperature Pulse Rate 92 98 120 H Respiratory Rate 26 H 26 H Blood Pressure Pulse Oximetry 02/27/21 20:00 02/27/21 22:00 02/28/21 00:00 Temperature 97.9 F 97 F L Pulse Rate 88 96 94 Respiratory Rate 18 18 Blood Pressure 117/54 L 112/68 Pulse Oximetry 92 92 02/28/21 01:30 02/28/21 02:00 02/28/21 04:00 Temperature 98.9 F Pulse Rate 92 92 88 Respiratory Rate 21 H 22 H Blood Pressure 133/56 L Pulse Oximetry 91 92 02/28/21 05:24 02/28/21 06:00 02/28/21 08:00 Temperature 98.3 F Pulse Rate 90 88 97 Respiratory Rate 25 H 25 H Blood Pressure 133/70 Pulse Oximetry 94 95 02/28/21 09:47 02/28/21 10:00 02/28/21 11:38 Temperature 97.6 F Pulse Rate 94 108 H 92 Respiratory Rate 22 H 22 H Blood Pressure 134/81 Pulse Oximetry 97 96 02/28/21 12:00 02/28/21 14:00 02/28/21 15:10 Temperature Pulse Rate 92 90 Respiratory Rate Blood Pressure Pulse Oximetry 95 02/28/21 16:00 Temperature 97.6 F Pulse Rate
[2021-02-28] MEDS: LORazepam INJ (*CRX) 2 MG/ML VIAL 1 MG IM (17:31)
[2021-02-28] MEDS: IPRATROPIUM BR 0.02% INH SOLN 0.5 MG/2.5 ML VIAL INHALATION (20:10)
[2021-02-28] MEDS: ALBUTEROL SULFATE NEB 2.5 MG/0.5 ML INH 5 MG INHALATION (20:20)
[2021-02-28 20:31] LABS: Glucose Point of Care 141 mg/dl (65-105)
[2021-03-01] VITALS (41 sets, daily range): BP systolic 93–149; BP diastolic 53–93; PULSE 77–130; RESP 16–35; TEMP 35.8–37.1; O2SAT 88–98
--- NOTE | 2021-03-01 | ECHO_ITS ---
Patient Info Name: Annabelle Peraza Age: 75 years : 1945 Gender: Female Ht: 60 in Wt: 147 lbs BSA: 1.70 m2 HR: 125 bpm BP: 149 / 67 mmHg Technical Quality: Poor Exam Date: 03/01/2021 10:39 AM Exam Location: [facility] Patient Status: Inpatient Admit Date: 02/27/2021 Staff Ordering Physician: Zayda Ruiz MD [place] Instructor: Yesy Cotton RDCS Attending Provider: Micah Patel MD Exam Type: CA echo doppler color flow Study Info Indications R06.02 - Shortness of breath Complete two-dimensional, color flow and Doppler transthoracic echocardiogram is performed. Reason for Poor Study: poor patient cooperation Summary 1. Complete two-dimensional, color flow and Doppler transthoracic echocardiogram is performed. 2. Technically suboptimal study due to poor sonographic images. 3. Left ventricular chamber dimension is normal. 4. Ventricular septum is sigmoid shaped. No LVOT obstruction. 5. Left ventricular systolic function is mildly reduced, estimated at 45-50%. 6. The left ventricular diastolic function is abnormal. 7. E/e' 14 is mildly elevated. 8. There is mild aortic valve sclerosis. 9. No pulmonary hypertension, estimated pulmonary arterial systolic pressure is 21 mmHg. TR envelope is not well seen. Left Ventricle E/e' 14 is mildly elevated. Technically suboptimal study due to poor sonographic images. Ventricular septum is sigmoid shaped. No LVOT obstruction. Left ventricular chamber dimension is normal. Left ventricular systolic function is mildly reduced, estimated at 45-50%. The left ventricular diastolic function is abnormal. Right Ventricle Right ventricular chamber dimension is normal. Right ventricular systolic function is normal. Left Atria Left atrial chamber dimension is normal. Right Atria Right atrial chamber dimension is normal. Aortic Valve The aortic valve is trileaflet. There is mild aortic valve sclerosis. There is no aortic valve stenosis. There is no aortic valve regurgitation. Pulmonic Valve There is no pulmonic regurgitation. Mitral Valve There is no mitral valve stenosis. There is no mitral valve regurgitation. Tricuspid Valve No pulmonary hypertension, estimated pulmonary arterial systolic pressure is 21 mmHg. TR envelope is not well seen. There is no tricuspid valve regurgitation. Pericardium/Pleural There is no pericardial effusion. Inferior Vena Cava Normal inferior vena cava with >50% collapse upon inspiration consistent with normal right atrial pressure, 5 mmHg. Aorta The aortic root size at the sinus of Valsalva is normal. Left Ventricular Outflow Tract Name Value Normal LVOT 2D LVOT Diameter 2.0 cm LVOT Doppler LVOT Peak Gradient 3 mmHg LVOT Mean Gradient 2 mmHg LVOT VTI 13 cm LVOT VTI/AV VTI Ratio 0.7 LVOT Stroke Volume 41 ml LVOT CO 5.0 l/min LVOT CI 2.9 l/min/m2 Pulmonic Valve ---------
[2021-03-01] MEDS: ALBUTEROL SULFATE NEB 2.5 MG/0.5 ML INH 5 MG INHALATION ×6 (00:02→20:08)
[2021-03-01] MEDS: IPRATROPIUM BR 0.02% INH SOLN 0.5 MG/2.5 ML VIAL INHALATION ×6 (00:03→20:06)
[2021-03-01 04:26] LABS: Alveolar/Arterial O2 Gradient 447.3 mmHg; Base Excess ABG -3.4 mEq/l (+/-2.0); Fractional Inspired Oxygen 80 %; HCO3 ABG 23.1 mEq/l (22.0-26.0); Oxygen Content ABG 18.1 %vol (16.0-22.0); Oxygen Saturation ABG 93.4 % (95.0-100.0); PCO2 ABG 47.2 mmHg (35.0-45.0); PO2 ABG 73.5 mmHg (80.0-100.0); PO2 FiO2 Ratio Arterial Blood 0.92 %; pH ABG 7.308 (7.350-7.450)
[2021-03-01 04:30] LABS: Device NON-INVASIVE VENT; Modified Allen's Test Pass; Site Drawn RIGHT RADIAL
[2021-03-01 04:31] LABS: Non-Invasive Expiratory Pressure 6 CMH2O; Non-Invasive Inspiratory Pressure 12 CMH2O; Non-Invasive Vent Rate 16 /MIN
--- NOTE | 2021-03-01 04:35 | PM.CCN ---
Critical Care Event Note Summary Code activated: No Narrative: 03/01/2021 at 4:00 a.m. The patient the was not keeping her BiPAP in place. I arrived in the patient's room she had a high-flow nasal cannula in place her pulse ox was not reading. I placed the BiPAP back on a patient with a patient's oxygen saturations reading is 85% on BiPAP 12/6 with a rate of 16. The patient at FiO2 was increased to 80%. A stat ABG was obtained which demonstrated improvement in the patient's previous respiratory acidosis with pH of 7.3 pCO2 of 47 PO2 of 73.5. The patient has older BiPAP apart multiple times throughout the evening and appears to be declining clinically. She is acutely ill-appearing, generalized pallor, diaphoretic with tachypnea and accessory muscle use. She is in sinus tachycardia in her rate was in the 130s when arrived in her room but has decreased down to the low 100s after BiPAP back and place. Stat chest x-ray has been ordered. 30 minute spent in critical care activities. This case had a high probability of a clinically significant, sudden, or life threatening deterioration of this patient's condition which required my full and direct attention, intervention and personal management. Critical care time: 30 - 74 mins
[2021-03-01] MEDS: LORazepam INJ (*CRX) 2 MG/ML VIAL 0.5 MG IV PUSH ×2 (04:50→10:55)
[2021-03-01 05:47] LABS: Basophils Absolute Auto 0.1 K/mm3 (0.0-0.1); Basophils Percent Auto 0.5 % (0.2-1.2); Eosinophils Percent Auto 0.3 % (0-4.4); Hematocrit 44.3 % (37.0-47.0); Hemoglobin 13.3 g/dL (12.0-15.0); Lymphocytes Absolute Auto 0.43 K/mm3 (0.9-3.2); Lymphocytes Percent Auto 4.4 % (18.3-44.2); Mean Corpuscular Hemoglobin 30.9 pg (26-34); Mean Corpuscular Volume 102.8 fl (80-100); Mean Platelet Volume 10.1 fl (7.4-10.4); Monocytes Absolute Auto 1.1 K/mm3 (0.1-0.6); Neutrophils Absolute Auto 8.2 K/mm3 (1.3-6.7); Neutrophils Percent Auto 82.8 % (45.5-73.1); Platelet Count Result 273 k/mm3 (150-375); Red Blood Count 4.31 M/mm3 (4.2-5.4); Red Cell Distribution Width 14.8 % (11.5-14.5); White Blood Count 9.9 K/mm3 (4.5-10.0)
[2021-03-01] MEDS: HEPARIN SODIUM 5,000 UNITS/ML VIAL 5000 UNITS SUB-Q ×3 (05:55→22:28)
[2021-03-01 06:03] LABS: Lactic Acid Reflex 2.4 mmol/L (0.7-2.1)
[2021-03-01 06:05] LABS: Alanine Aminotransferase 50 U/L (4-35); Albumin Level 3.6 g/dL (3.5-5.1); Alkaline Phosphatase 101 U/L (38-126); Anion Gap 10 mmol/L (8-16); Aspartate Amino Transferase 67 U/L (14-36); Bilirubin,Total 0.8 mg/dL (0.2-1.3); Blood Urea Nitrogen 49 mg/dL (7-17); Calcium 9.3 mg/dL (8.4-10.2); Carbon Dioxide 21 mmol/L (22-30); Chloride 123 mmol/L (98-107); Estimated CRCL calculation 30 ml/min; Estimated Glomerular Filt Rate 44; Glucose 170 mg/dL (65-110); Magnesium 2.4 mg/dL (1.6-2.3); Phosphorus 3.9 mg/dL (2.5-4.5); Sodium 154 mmol/L (137-145)
[2021-03-01 08:44] LABS: Reflex Lactic Acid Yes or No Add Lactic
[2021-03-01] MEDS: METOPROLOL SUCCINATE EXT REL 25 MG TABCR PO (08:45)
[2021-03-01] MEDS: DEXAMETHASONE SOD PHOS INJ 4 MG/ML VIAL 6 MG IV PUSH (08:46)
[2021-03-01 08:55] LABS: Glucose Point of Care 150 mg/dl (65-105)
[2021-03-01 09:42] LABS: Lactic Acid 2.4 mmol/L (0.7-2.1)
--- NOTE | 2021-03-01 09:45 | PM.CNPUL ---
Assessment and Plan Assessment and plan (1) Pneumonia due to 2019-nCoV: Code(s): U07.1 - COVID-19; J12.82 - Pneumonia due to coronavirus disease 2019 Status: Acute Assessment and Plan: Patient tested positive for COVID-19 on 02/27 and started on dexamethasone on 02/27 and started on remdesivir and baricitinib on 03/01. - Remdesivir for 10 days Unless he should recover and tolerate room air with rest, ambulation and while sleeping. - Dexamethasone 6 mg IV for 10 days - Baricitinib 2 mg PO for 14 days or until discharged - Continuous pulse oximetry - Prone positioning as tolerated. - Avoid any fluid overload. - Albuterol and ipratropium nebulizers while on BiPAP and inhalers while on high-flow. 03/01 CXR slight progression of infiltrates today. Full code now per family. Goal saturations 90-94% with Airvo andif fails then BiPAP 16/8 rate 20 and if she is agitated on straight BiPAP would try AVAPS mode with rate of 20, tidal volume 500, EPAP 8, minimum IPAP 9, maximum IPAP 25. Intubation if not tolerating AVAPS mode. Will follow with you (2) Acute respiratory failure with hypoxia: Code(s): J96.01 - Acute respiratory failure with hypoxia Status: Acute Assessment and Plan: Etiology of hypoxic respiratory failure is likely COVID pneumonia. Patient does have a mildly elevated BNP and I will check an echocardiogram to ensure normal LV function and valve function. 02/27 00:30 6 L NC sats 90% 02/27 01:45 12 L NC sats 91% 02/27 06;15 15 L NC sats 92% 02/28 01:30 BiPAP 12/6 60% sats 91% 02/28 15:00 15 L NC sats 95% 03/01 08:00 Airvo 60 L 90% sats 92% History of Present Illness History of Present Illness Consult date: 03/01/21 Requesting physician: Shelly Daniels MD Reason for consult: COPD, hypoxemia and other (COVID pneumonia) Chief complaint: Acute Resp Failure c hypoxia, COVID19, Acute Renal Narrative: this is a new Pulmonary consult for COPD, COVID pneumonia with hypoxemic and hypercarbic respiratory failure 03/01/2021 75-year-old woman with a history of hypertension, GERD, hyperlipidemia, hypothyroidism arthritis and severe COPD with chronic hypoxemic respiratory failure On 2 L oxygen with activity and sleep, with an FEV1 of 0.56 L, 31% predicted on 02/19/2014 And severe panlobular emphysema on her CT scan of the chest on 03/25/2020 who is followed in the Pulmonary Clinic. Patient was last seen on 12/22/2020 and she was maintained on trilogy, Singulair and albuterol nebulizers and inhalers. At that time she had a mild COPD exacerbation with sinusitis and was given cefdinir 300 b.i.d. for 10 days and a prednisone taper. Currently patient presented to the emergency department on 829 with worsening shortness of breath after being exposed to her who was diagnosed with COVID. Patient tested positive for rapid COVID antigen in the emergency department and had a chest x-ray that demonstrated diffuse interstitial alveolar infiltrates and a creatinine of 2.9. Patient was initially requiring 6 L nasal cannula oxygen on 02/27 and has become more hypoxemic and eventually required BiPAP on 02/27 with a blood gas of 7.3 07/30/1998 on BiPAP 04/06 with a FiO2 of 80%. Patient's oxygenation has waxed and waned and her mental status is now altered as she is confused. She was switched to high-flow nasal cannula with a air flow 60 L 90% with saturations 92% currently. she was treated with IV fluid and her acute kidney injury has responded and her creatinine is now 1.2. 03/01 Patient does not give me any history at this time. Currently on airvo 60 L, 90% FiO2 with saturations 92%. She is in mild respiratory distress with restraints on. I have spoken to pharmacy and since her creatinine has now improved will start Remdesivir and baracitinib as the hospital is out of tocilizumab. DATA EXAMINATION: XR chest 1V portable EXAM DATE: 03/01/2021 05:32 INDICATION: C
[2021-03-01 11:42] LABS: INR 0.9; Prothrombin Time 12.3 Seconds (11.1-14.7)
[2021-03-01] MEDS: REMDESIVIR 200 MG/NS 250 ML 200 MG/250 ML BAG 250 MG IVPB (12:49)
[2021-03-01] MEDS: BARICITINIB 2 MG TABLET PO (12:56)
[2021-03-01 12:57] LABS: Glucose Point of Care 201 mg/dl (65-105)
[2021-03-01] MEDS: INSULIN ASPART (*BKC) 100 UNITS/ML SUB-Q (13:09)
--- NOTE | 2021-03-01 14:55 | PC.NURSE ---
This patient, Annabelle Peraza, was received from [201] on 03/01/21 at 1455. Patient/family oriented to unit policies and routines REPORT RECEIVED FROM ESTHER MCGEE.
--- NOTE | 2021-03-01 14:55 | PC.NURSE ---
This patient, Annabelle Peraza, was transferred to [ ICU-5] on 03/01/21 at 1445. Personal belongings sent with patient. Report given to [EVERARDO Jackson @ [phone] ]. Appropriate documentation sent with patient.
[2021-03-01] MEDS: dexmedeTOMIDine 400 MCG/100 ML 400 MCG/100 ML BAG 5.03 MCG IV CONT (15:19)
--- NOTE | 2021-03-01 16:58 | PM.IMPN ---
Progress Note: A&P Assessment and Plan (1) Acute respiratory failure with hypoxia: Code(s): J96.01 - Acute respiratory failure with hypoxia Status: Acute Assessment and Plan: secondary to COVID-19 pneumonia. Patient is currently on BiPAP around the clock. Patient is a do not intubate order. As such, there is no benefit in transferring to ICU. Discussed with nursing. Will continue to monitor on BiPAP, and treat COVID with steroids. DVT prophylaxis with heparin. Hold IV fluids. Will discuss with family, poor prognosis. Acute Respiratory failure secondary to COVID-19 pneumonia and severe baseline COPD with FEV1 of 0.56 L which is 31% predicted and severe panlobular emphysema on her CT scan Continue full mechanical ventilation support to prevent hypoxemia/hypercarbia and end organ damage. PCXR reviewed and ETT adjusted ABGs pend Low tidal volume ventilation strategy to prevent volutrauma post intubation patient's saturations remain low and patient was bagged multiple times to get her saturation into mid 80s. sedation with Versed and fentanyl. patient was given neuromuscular blockade which will be continued on p.r.n. basis at this. continue Bronchodilators will start inhaled Flolan will prone patient once stabilized (2) COVID-19: Code(s): U07.1 - COVID-19 Status: Acute Assessment and Plan: Continue IV steroids. Around the clock BiPAP. Q 4 hour breathing treatments. Will discuss with family, poor prognosis. Continue IV dexamethasone, remdesivir, Barcitinib SARS-CoV-2 PCR positive Patient is in Airborne, Droplet and Contact Isolation Follow inflammatory periodically 03/01 patient with history of severe emphysema and now COVID-19 being treated with dexamethasone, remdesivir Barcitinib patient high-flow oxygen and struggling with breathing, I called and spoke with patient explained the presentation he would like to keep the patient full and in the event of distress patient can be placed ventilator. will continue to monitor and if needed will transfer patient to ICU. (3) Acute renal insufficiency: Code(s): N28.9 - Disorder of kidney and ureter, unspecified Status: Acute Assessment and Plan: Greatly improved, 2.9 yesterday, with fluid hydration 1.3 today. Will stop IV fluids, as edema may be contributing to respiratory distress. Trend creatinine in the morning. improved with initial IV fluids on presentation monitor urine output electrolytes and creatinine (4) Chronic obstructive pulmonary disease, unspecified: Qualifiers: COPD type: emphysema Emphysema type: unspecified Qualified Code(s): J43.9 - Emphysema, unspecified Code(s): J44.9 - Chronic obstructive pulmonary disease, unspecified Status: Acute Assessment and Plan: Steroids would help with decompensation. Q 4 DuoNeb. BiPAP, wean as tolerated, poor prognosis. on dexamethasone and bronchodilators (5) Hypothyroidism, unspecified: Qualifiers: Hypothyroidism type: acquired Qualified Code(s): E03.9 - Hypothyroidism, unspecified Code(s): E03.9 - Hypothyroidism, unspecified Status: Acute Assessment and Plan: continue levothyroxine (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 patient initially was DNR but her change her code status to full code. It appears the patient's does not have full understanding of the critical nature of patient's illness. patient o
[2021-03-01 17:17] LABS: Glucose Point of Care 175 mg/dl (65-105)
[2021-03-01] MEDS: SODIUM CHLORIDE 0.9% IV 1,000 ML 999 ML IV CONT (18:51)
[2021-03-01] MEDS: MINERAL OIL/WHITE PETROLATUM OINTMENT 1 APPLIC EACH EYE (21:00)
[2021-03-01 23:54] LABS: Glucose Point of Care 153 mg/dl (65-105)
[2021-03-02] VITALS (42 sets, daily range): BP systolic 81–158; BP diastolic 48–76; PULSE 64–112; RESP 22–44; TEMP 35.7–38.2; O2SAT 84–99
[2021-03-02] MEDS: dexmedeTOMIDine 400 MCG/100 ML 400 MCG/100 ML BAG 11.74 MCG IV CONT (00:41)
[2021-03-02] MEDS: ALBUTEROL SULFATE NEB 2.5 MG/0.5 ML INH 5 MG INHALATION ×3 (00:51→08:00)
[2021-03-02] MEDS: IPRATROPIUM BR 0.02% INH SOLN 0.5 MG/2.5 ML VIAL INHALATION ×3 (00:51→08:01)
[2021-03-02] MEDS: LORazepam INJ (*CRX) 2 MG/ML VIAL 0.5 MG IV PUSH (02:42)
[2021-03-02 05:27] LABS: Alveolar/Arterial O2 Gradient 455.2 mmHg; Base Excess ABG -3.5 mEq/l (+/-2.0); Carboxyhemoglobin 0.3 % THb (0-2.0); Device NON-INVASIVE VENT; Fractional Inspired Oxygen 80 %; Methemoglobin ABG 0.2 %THb (0-1.5); Modified Allen's Test Pass; Oxygen Saturation ABG 93.5 % (95.0-100.0); Oxyhemoglobin 91.2 % THb (90.0-100.0); PCO2 ABG 41.8 mmHg (35.0-45.0); PO2 ABG 71.3 mmHg (80.0-100.0); PO2 FiO2 Ratio Arterial Blood 0.89 %; Reduced Hemoglobin 8.3 %THb (0-5.0); Site Drawn RIGHT RADIAL; Total Hemoglobin 13.2 g/dL (12.0-18.0)
[2021-03-02 05:28] LABS: Non-Invasive Expiratory Pressure 6 CMH2O; Non-Invasive Inspiratory Pressure 12 CMH2O; Non-Invasive Vent Rate 16 /MIN
[2021-03-02] MEDS: HEPARIN SODIUM 5,000 UNITS/ML VIAL 5000 UNITS SUB-Q ×3 (05:30→22:52)
[2021-03-02 06:10] LABS: Alanine Aminotransferase 52 U/L (4-35); Estimated CRCL calculation 28 ml/min; Estimated Glomerular Filt Rate 40
[2021-03-02 06:12] LABS: INR 1.1; Prothrombin Time 14.5 Seconds (11.1-14.7)
[2021-03-02 09:05] LABS: Glucose Point of Care 170 mg/dl (65-105)
[2021-03-02] MEDS: RAPID SEQUENCE INTUBATION KIT 1 EACH (09:21)
[2021-03-02] MEDS: MIDAZOLAM 100MG/NS 100ML(*CRX) 100 MG/100 ML BAG (09:21)
[2021-03-02] MEDS: FENTANYL 2,500MCG/NS250ML(*CRX 2,500 MCG/250 ML BAG 10 MCG (09:22)
[2021-03-02] MEDS: FENTANYL 2,500MCG/NS250ML(*CRX 2,500 MCG/250 ML BAG 10 MCG IV CONT (09:30)
[2021-03-02] MEDS: MIDAZOLAM 100MG/NS 100ML(*CRX) 100 MG/100 ML BAG IV CONT (09:30)
--- NOTE | 2021-03-02 09:51 | WPDPROCEDUR ---
Procedures Intubation Intubation Date: 03/02/21 Intubation Time: 08:45 Consent: Patient's was aware the patient was going to get intubated because of worsening COVID pneumonia. He did give consent to Dr. Daniels yesterday evening for intubation. I spoke to Dr. Daniels and confirmed with him this morning A pre-procedural Time-Out was completed immediately before starting the procedure and confirmed: Patient Identification, Site, Procedure, Patient Position and the Availability of Requisite Equipment: Yes Sedative: etomidate Mg given: 20 Paralytic: succinylcholine Mg given: 100 Laryngoscope: fiber optic video scope Assist device used: fiber optic device ET tube size: 7.5 Tube secured depth (cm): 25 Tube secured location: lips Tube placement confirmation: visualized tube passing through cords, equal breath sounds bilaterally, no breath sounds over epigastrium and confirmation by capnometry Patient tolerated procedure: well Intubation complications: none Additional comments: ET tube was withdrawn 3 cm after placement
--- NOTE | 2021-03-02 09:53 | WPDCNINT ---
Assessment and Plan Assessment and plan (1) Acute respiratory failure with hypoxia: Code(s): J96.01 - Acute respiratory failure with hypoxia Status: Acute Assessment and Plan: Acute Respiratory failure secondary to COVID-19 pneumonia and severe baseline COPD with FEV1 of 0.56 L which is 31% predicted and severe panlobular emphysema on her CT scan Continue full mechanical ventilation support to prevent hypoxemia/hypercarbia and end organ damage. PCXR reviewed and ETT adjusted ABGs pend Low tidal volume ventilation strategy to prevent volutrauma post intubation patient's saturations remain low and patient was bagged multiple times to get her saturation into mid 80s. sedation with Versed and fentanyl. patient was given neuromuscular blockade which will be continued on p.r.n. basis at this. continue Bronchodilators will start inhaled Flolan will prone patient once stabilized (2) COVID-19: Code(s): U07.1 - COVID-19 Status: Acute Assessment and Plan: Continue IV dexamethasone, remdesivir, Barcitinib SARS-CoV-2 PCR positive Patient is in Airborne, Droplet and Contact Isolation Follow inflammatory periodically (3) Acute renal insufficiency: Code(s): N28.9 - Disorder of kidney and ureter, unspecified Status: Acute Assessment and Plan: improved with initial IV fluids on presentation monitor urine output electrolytes and creatinine (4) Chronic obstructive pulmonary disease, unspecified: Qualifiers: COPD type: emphysema Emphysema type: unspecified Qualified Code(s): J43.9 - Emphysema, unspecified Code(s): J44.9 - Chronic obstructive pulmonary disease, unspecified Status: Acute Assessment and Plan: on dexamethasone and bronchodilators (5) Hypothyroidism, unspecified: Qualifiers: Hypothyroidism type: acquired Qualified Code(s): E03.9 - Hypothyroidism, unspecified Code(s): E03.9 - Hypothyroidism, unspecified Status: Acute Assessment and Plan: continue levothyroxine (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 patient initially was DNR but her change her code status to full code. It appears the patient's does not have full understanding of the critical nature of patient's illness. patient overall has very poor prognosis considering severe baseline COPD and now COVID 19 pneumonia. Total Critical Care Time - 110 minutes Due to a high probability of clinically significant, life threatening deterioration, the patient required my highest level of preparedness to intervene emergently and I personally spent this critical care time directly and personally managing the patient. This critical care time included obtaining a history; examining the patient; pulse oximetry; ordering and review of studies; arranging urgent treatment with development of a management plan; evaluation of patient's response to treatment; frequent reassessment; and discussions with other providers. It was exclusive of separately billable procedures and treating other patients and teaching time. Please see Assessment and Plan section and the rest of the note for further information on patient assessment and treatment Software Build Engineer Consult Note Consult date: 03/02/21 Time Seen: 07:30 HPI: Annabelle Peraza is a 75 year old female with past medical history of severe COPD on home oxygen was admitted on 02/27 with chief complaint of shortness of breath. patient was diagnosed with COVID-19 pn
[2021-03-02] MEDS: DEXAMETHASONE SOD PHOS INJ 4 MG/ML VIAL 6 MG IV PUSH (09:54)
[2021-03-02] MEDS: REMDESIVIR 100 MG/NS 250 ML 100 MG/250 ML BAG 250 MG IVPB (09:54)
[2021-03-02] MEDS: BARICITINIB 2 MG TABLET PO (09:55)
[2021-03-02] MEDS: MINERAL OIL/WHITE PETROLATUM OINTMENT 1 APPLIC EACH EYE ×2 (09:55→20:31)
[2021-03-02] MEDS: EPOPROSTENOL SODIUM 0.5 MG VIAL INHALATION (10:52)
[2021-03-02 12:47] LABS: Glucose Point of Care 152 mg/dl (65-105)
[2021-03-02 13:22] LABS: Alveolar/Arterial O2 Gradient 564.7 mmHg; Base Excess ABG -4.8 mEq/l (+/-2.0); Fractional Inspired Oxygen 100 %; HCO3 ABG 24.4 mEq/l (22.0-26.0); Oxygen Content ABG 17.5 %vol (16.0-22.0); Oxygen Saturation ABG 93.7 % (95.0-100.0); Oxyhemoglobin 92.3 % THb (90.0-100.0); PO2 ABG 84.2 mmHg (80.0-100.0); PO2 FiO2 Ratio Arterial Blood 0.84 %; Total Hemoglobin 13.4 g/dL (12.0-18.0)
[2021-03-02 13:23] LABS: pH ABG 7.198 (7.350-7.450)
[2021-03-02 13:24] LABS: Arterial Blood Gas PEEP 14 cmH2O; Arterial Blood Gas Tidal Volume 320 ml; Arterial Blood Gas Vent Mode CMV; Arterial Blood Gas Ventilator rate 22 /MIN; Device VENTILATOR; Modified Allen's Test Unable to perform; PCO2 ABG 64.1 mmHg (35.0-45.0); Site Drawn LEFT RADIAL
[2021-03-02] MEDS: SODIUM BICARBONATE 8.4% 50 MEQ/50 ML SYRINGE 100 MEQ IV PUSH (14:09)
[2021-03-02] MEDS: SODIUM CHLORIDE 0.9% IV 1,000 ML 999 ML IV CONT (14:10)
[2021-03-02 14:44] LABS: Basophils Percent Auto 0.4 % (0.2-1.2); Hematocrit 43.2 % (37.0-47.0); Immature Granulocyte Absolute 0.13 K/mm3 (0.00-0.031); Immature Granulocyte Percent A 1.4 % (0-0.5); Lymphocytes Percent Auto 3.2 % (18.3-44.2); Mean Corpuscular HGB Conc 30.1 g/dl (32-36); Mean Corpuscular Hemoglobin 31.3 pg (26-34); Mean Corpuscular Volume 103.8 fl (80-100); Mean Platelet Volume 10.8 fl (7.4-10.4); Monocytes Absolute Auto 1.4 K/mm3 (0.1-0.6); Monocytes Percent Auto 14.6 % (2.6-8.5); Neutrophils Absolute Auto 7.4 K/mm3 (1.3-6.7); Neutrophils Percent Auto 80.4 % (45.5-73.1); Nucleated Red Blood Cells Perc 0.2 % (0.0-0.2); Platelet Count Result 259 k/mm3 (150-375); Red Blood Count 4.16 M/mm3 (4.2-5.4); Red Cell Distribution Width 15.5 % (11.5-14.5); White Blood Count 9.3 K/mm3 (4.5-10.0)
[2021-03-02] MEDS: EPOPROSTENOL SODIUM 0.5 MG VIAL 1 MG INHALATION ×2 (16:33→22:22)
[2021-03-02 17:32] LABS: Glucose Point of Care 191 mg/dl (65-105)
[2021-03-02] MEDS: FAMOTIDINE 20 MG TABLET PO (20:30)
[2021-03-03] VITALS (41 sets, daily range): BP systolic 91–124; BP diastolic 52–70; PULSE 73–120; RESP 12–32; TEMP 36.6–37.9; O2SAT 91–100; BMI 28.5
[2021-03-03 01:03] LABS: Glucose Point of Care 181 mg/dl (65-105)
[2021-03-03] MEDS: ACETAMINOPHEN 650 MG SUPPOSITORY RECTAL (02:38)
[2021-03-03] MEDS: EPOPROSTENOL SODIUM 0.5 MG VIAL 1 MG INHALATION ×4 (04:27→22:57)
[2021-03-03 04:52] LABS: Alveolar/Arterial O2 Gradient 570.5 mmHg; Base Excess ABG -0.8 mEq/l (+/-2.0); Carboxyhemoglobin 0.3 % THb (0-2.0); Fractional Inspired Oxygen 100 %; HCO3 ABG 26.7 mEq/l (22.0-26.0); Methemoglobin ABG 0.4 %THb (0-1.5); Oxygen Content ABG 18.3 %vol (16.0-22.0); Oxygen Saturation ABG 95.4 % (95.0-100.0); Oxyhemoglobin 93.8 % THb (90.0-100.0); PCO2 ABG 56.2 mmHg (35.0-45.0); PO2 ABG 86.3 mmHg (80.0-100.0); PO2 FiO2 Ratio Arterial Blood 0.86 %; Reduced Hemoglobin 5.5 %THb (0-5.0); Total Hemoglobin 13.8 g/dL (12.0-18.0)
[2021-03-03 04:53] LABS: Device VENTILATOR; Modified Allen's Test Pass; Site Drawn RIGHT RADIAL; pH ABG 7.295 (7.350-7.450)
[2021-03-03 04:54] LABS: Arterial Blood Gas Vent Mode CMV; Arterial Blood Gas Ventilator rate 28 /MIN
[2021-03-03 04:55] LABS: Arterial Blood Gas PEEP 14 cmH2O; Arterial Blood Gas Tidal Volume 320 ml
[2021-03-03 05:09] LABS: Alanine Aminotransferase 40 U/L (4-35); Albumin Level 3.1 g/dL (3.5-5.1); Alkaline Phosphatase 90 U/L (38-126); Anion Gap 7 mmol/L (8-16); Aspartate Amino Transferase 38 U/L (14-36); Bilirubin,Total 0.7 mg/dL (0.2-1.3); Blood Urea Nitrogen 77 mg/dL (7-17); CRP 20.3 mg/dL (<1.0); Calcium 8.8 mg/dL (8.4-10.2); Carbon Dioxide 23 mmol/L (22-30); Chloride 128 mmol/L (98-107); Estimated CRCL calculation 23 ml/min; Estimated Glomerular Filt Rate 31; Glucose 184 mg/dL (65-110); Lactate Dehydrogenase 911 U/L (313-618); Magnesium 2.8 mg/dL (1.6-2.3); Potassium 4.9 mmol/L (3.4-5.0); Sodium 158 mmol/L (137-145)
[2021-03-03] MEDS: HEPARIN SODIUM 5,000 UNITS/ML VIAL 5000 UNITS SUB-Q ×3 (05:32→21:02)
[2021-03-03] MEDS: LEVOTHYROXINE SODIUM 75 MCG TABLET FEED TUBE (05:33)
[2021-03-03 06:54] LABS: Glucose Point of Care 151 mg/dl (65-105)
[2021-03-03] MEDS: BARICITINIB 2 MG TABLET PO (08:08)
[2021-03-03] MEDS: MINERAL OIL/WHITE PETROLATUM OINTMENT 1 APPLIC EACH EYE ×2 (08:08→20:47)
[2021-03-03] MEDS: FAMOTIDINE 20 MG TABLET PO ×2 (08:09→20:46)
[2021-03-03] MEDS: DEXAMETHASONE SOD PHOS INJ 4 MG/ML VIAL 6 MG IV PUSH (08:09)
[2021-03-03] MEDS: LIDOCAINE HCL 1% LOCAL INJ 2 ML AMPUL 5 ML INFILTRATE (12:20)
--- NOTE | 2021-03-03 12:27 | WPDPROCEDUR ---
Procedures Intubation Intubation Date: 03/03/21 Intubation Time: 11:45 Consent: patient was already intubated. Patient developed significant cuff leak and loss of tidal volume. patient's ET tube was exchanged emergently A pre-procedural Time-Out was completed immediately before starting the procedure and confirmed: Patient Identification, Site, Procedure, Patient Position and the Availability of Requisite Equipment: Yes Sedative: other ( patient already on fentanyl and Versed infusion) Paralytic: rocuronium Mg given: 50 Assist device used: Bougie ET tube size: 7.5 Tube secured depth (cm): 23 Tube secured location: lips Tube placement confirmation: equal breath sounds bilaterally, no breath sounds over epigastrium and confirmation by capnometry Patient tolerated procedure: well Intubation complications: none
--- NOTE | 2021-03-03 12:28 | WPDINTPN ---
Progress Note: A&P Assessment and Plan (1) Acute respiratory failure with hypoxia: Code(s): J96.01 - Acute respiratory failure with hypoxia Status: Acute Assessment and Plan: Acute Respiratory failure secondary to COVID-19 pneumonia and severe baseline COPD with FEV1 of 0.56 L which is 31% predicted and severe panlobular emphysema on her CT scan. 02/28 BiPAP 03/02 intubated 03/03 ET tube exchanged due to cuff leak Continue full mechanical ventilation support to prevent hypoxemia/hypercarbia and end organ damage. PCXR reviewed and ETT adjusted ABGs reviewed and respiratory rate increased to 30 she is on 14 of PEEP and 100% FiO2 Low tidal volume ventilation strategy to prevent volutrauma sedation with Versed and fentanyl. patient was given neuromuscular blockade which will be continued on p.r.n. basis at this. continue Bronchodilators will start inhaled Flolan will prone patient once stabilized (2) COVID-19: Code(s): U07.1 - COVID-19 Status: Acute Assessment and Plan: Continue IV dexamethasone, remdesivir, Barcitinib SARS-CoV-2 PCR positive Patient is in Airborne, Droplet and Contact Isolation Follow inflammatory periodically (3) Acute renal insufficiency: Code(s): N28.9 - Disorder of kidney and ureter, unspecified Status: Acute Assessment and Plan: improved with initial IV fluids on presentation monitor urine output electrolytes and creatinine (4) Chronic obstructive pulmonary disease, unspecified: Qualifiers: COPD type: emphysema Emphysema type: unspecified Qualified Code(s): J43.9 - Emphysema, unspecified Code(s): J44.9 - Chronic obstructive pulmonary disease, unspecified Status: Acute Assessment and Plan: on dexamethasone and bronchodilators (5) Hypothyroidism, unspecified: Qualifiers: Hypothyroidism type: acquired Qualified Code(s): E03.9 - Hypothyroidism, unspecified Code(s): E03.9 - Hypothyroidism, unspecified Status: Acute Assessment and Plan: continue levothyroxine (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: Code(s): E11.59 - Type 2 diabetes mellitus with other circulatory complications Status: Acute Assessment and Plan: sliding scale insulin (7) Hypernatremia: Code(s): E87.0 - Hyperosmolality and hypernatremia Status: Acute Assessment and Plan: will start patient on D5 water and also on free water flushes recheck BMP tonight Additional Plan DVT prophylaxis - subQ heparin Stress ulcer prophylaxis - Pepcid Nutrition - Start tube feeds today Code Status - Full Code as per patient's Total Critical Care Time - 40 minutes Due to a high probability of clinically significant, life threatening deterioration, the patient required my highest level of preparedness to intervene emergently and I personally spent this critical care time directly and personally managing the patient. This critical care time included obtaining a history; examining the patient; pulse oximetry; ordering and review of studies; arranging urgent treatment with development of a management plan; evaluation of patient's response to treatment; frequent reassessment; and discussions with other providers. It was exclusive of separately billable procedures and treating other patients and teaching time. Please see Assessment and Plan section and the rest of the note for further information on patient assessment and treatment Subjective Date/time seen: 03/03/21 12:28 Overnight events reviewed. Afebrile Continues to be on mechanical ventilation 100% FiO2 and 14 of PEEP Continues to be on sedation Vitals acceptable ET tube had to be exchanged after a blown cuff this morning Review of Systems Review of Systems: ROS unobtainable: Yes unobtainable due to endotracheal tube, unobtainable due to medical condition and unobtainable due to mental stat
[2021-03-03] MEDS: RAPID SEQUENCE INTUBATION KIT 1 EACH (13:00)
[2021-03-03 13:26] LABS: Hematocrit 41.3 % (37.0-47.0); Hemoglobin 12.3 g/dL (12.0-15.0); Mean Corpuscular HGB Conc 29.8 g/dl (32-36); Mean Corpuscular Hemoglobin 31.4 pg (26-34); Mean Corpuscular Volume 105.4 fl (80-100); Mean Platelet Volume 10.8 fl (7.4-10.4); Platelet Count Result 263 k/mm3 (150-375); Red Blood Count 3.92 M/mm3 (4.2-5.4); Red Cell Distribution Width 15.9 % (11.5-14.5); White Blood Count 7.9 K/mm3 (4.5-10.0)
[2021-03-03 13:45] LABS: INR 1.2; Prothrombin Time 15.3 Seconds (11.1-14.7)
[2021-03-03 13:47] LABS: D Dimer 2.45 ug/mL (<0.48)
[2021-03-03 13:55] LABS: Anion Gap 11 mmol/L (8-16); Blood Urea Nitrogen 88 mg/dL (7-17); Carbon Dioxide 27 mmol/L (22-30); Chloride 122 mmol/L (98-107); Estimated CRCL calculation 20 ml/min; Estimated Glomerular Filt Rate 27; Glucose 218 mg/dL (65-110); Potassium 5.1 mmol/L (3.4-5.0); Sodium 160 mmol/L (137-145)
[2021-03-03] MEDS: DEXTROSE 5% 1,000 ML 1,000 ML 150 ML IV CONT ×2 (14:21→20:44)
[2021-03-03] MEDS: CENTRAL LINE FLUSH 10 ML IV PUSH ×2 (14:22→21:02)
[2021-03-03] MEDS: REMDESIVIR 100 MG/NS 250 ML 100 MG/250 ML BAG 250 MG IVPB (15:14)
[2021-03-03] MEDS: SODIUM POLYSTYRENE SULFONONATE 15 GM/60 ML BTL 30 GM FEED TUBE (15:48)
[2021-03-03 18:09] LABS: Glucose Point of Care 231 mg/dl (65-105)
[2021-03-03 18:09] LABS: Glucose Point of Care 188 mg/dl (65-105)
[2021-03-03] MEDS: INSULIN ASPART (*BKC) 100 UNITS/ML SUB-Q ×2 (18:18→23:58)
[2021-03-04] VITALS (15 sets, daily range): BP systolic 87–111; BP diastolic 60–67; PULSE 87–122; RESP 30; TEMP 37.1–37.8; O2SAT 85–95
[2021-03-04] MEDS: MIDAZOLAM 100MG/NS 100ML(*CRX) 100 MG/100 ML BAG IV CONT (00:10)
[2021-03-04 00:16] LABS: Glucose Point of Care 280 mg/dl (65-105)
[2021-03-04] MEDS: EPOPROSTENOL SODIUM 0.5 MG VIAL 1 MG INHALATION (05:04)
[2021-03-04 05:26] LABS: Alveolar/Arterial O2 Gradient 385.6 mmHg; Base Excess ABG -4.5 mEq/l (+/-2.0); Carboxyhemoglobin 0.3 % THb (0-2.0); Fractional Inspired Oxygen 75 %; HCO3 ABG 25.2 mEq/l (22.0-26.0); Methemoglobin ABG 0.4 %THb (0-1.5); Oxygen Content ABG 18.1 %vol (16.0-22.0); Oxygen Saturation ABG 91.5 % (95.0-100.0); Oxyhemoglobin 90.9 % THb (90.0-100.0); PO2 ABG 76.6 mmHg (80.0-100.0); PO2 FiO2 Ratio Arterial Blood 1.02 %; Reduced Hemoglobin 8.4 %THb (0-5.0); Total Hemoglobin 14.1 g/dL (12.0-18.0)
[2021-03-04 05:29] LABS: Device VENTILATOR; Modified Allen's Test Pass; PCO2 ABG 68.3 mmHg (35.0-45.0); Site Drawn RIGHT RADIAL; pH ABG 7.184 (7.350-7.450)
[2021-03-04] MEDS: HEPARIN SODIUM 5,000 UNITS/ML VIAL 5000 UNITS SUB-Q (05:29)
[2021-03-04] MEDS: CENTRAL LINE FLUSH 10 ML IV PUSH (05:29)
[2021-03-04 05:30] LABS: Arterial Blood Gas PEEP 14 cmH2O; Arterial Blood Gas Tidal Volume 320 ml; Arterial Blood Gas Vent Mode CMV; Arterial Blood Gas Ventilator rate 30 /MIN
[2021-03-04] MEDS: INSULIN ASPART (*BKC) 100 UNITS/ML SUB-Q (05:30)
[2021-03-04] MEDS: FENTANYL 2,500MCG/NS250ML(*CRX 2,500 MCG/250 ML BAG IV CONT (05:34)
[2021-03-04] MEDS: LEVOTHYROXINE SODIUM 75 MCG TABLET FEED TUBE (05:36)
[2021-03-04 05:51] LABS: Glucose Point of Care 296 mg/dl (65-105)
[2021-03-04 06:14] LABS: Hematocrit 45.5 % (37.0-47.0); Hemoglobin 13.3 g/dL (12.0-15.0); Mean Corpuscular HGB Conc 29.2 g/dl (32-36); Mean Corpuscular Hemoglobin 31.4 pg (26-34); Mean Corpuscular Volume 107.3 fl (80-100); Mean Platelet Volume 11.1 fl (7.4-10.4); Platelet Count Result 266 k/mm3 (150-375); Red Blood Count 4.24 M/mm3 (4.2-5.4); Red Cell Distribution Width 15.8 % (11.5-14.5)
[2021-03-04 06:21] LABS: INR 1.3; Prothrombin Time 15.9 Seconds (11.1-14.7)
[2021-03-04 06:29] LABS: Alanine Aminotransferase 33 U/L (4-35); Albumin Level 2.7 g/dL (3.5-5.1); Alkaline Phosphatase 119 U/L (38-126); Anion Gap 5 mmol/L (8-16); Aspartate Amino Transferase 38 U/L (14-36); Bilirubin,Total 0.7 mg/dL (0.2-1.3); Blood Urea Nitrogen 73 mg/dL (7-17); Calcium 8.7 mg/dL (8.4-10.2); Carbon Dioxide 26 mmol/L (22-30); Chloride 118 mmol/L (98-107); Estimated CRCL calculation 22 ml/min; Estimated Glomerular Filt Rate 31; Glucose 347 mg/dL (65-110); Magnesium 2.5 mg/dL (1.6-2.3); Potassium 4.1 mmol/L (3.4-5.0); Sodium 149 mmol/L (137-145)
[2021-03-04] MEDS: ROCURONIUM BROMIDE 50 MG/5 ML VIAL IV PUSH (08:55)
[2021-03-04] MEDS: NOREPINEPHRINE 8 MG/D5W 250 ML 8 MG/250 ML BAG 9.38 MG IV CONT (08:55)
--- NOTE | 2021-03-04 09:20 | PC.NURSE ---
Family on the unit. Dr. Ponce and Record Maker, Ivone discussing care with family.
--- NOTE | 2021-03-04 10:49 | WPDINTPN ---
Progress Note: A&P Assessment and Plan (1) Cardiac arrest: Code(s): I46.9 - Cardiac arrest, cause unspecified Status: Acute Assessment and Plan: Patient had a PEA arrest, likely related to hypoxia, hypotension, decreased perfusion/oxygenation, hypotension, worsening of COPD and COVID pneumonia -ACLS protocol was initiated, ROSC was achieved, - and daughter decided to make the patient a DNR and comfort measures with withdrawal of support. (2) Acute respiratory failure with hypoxia: Code(s): J96.01 - Acute respiratory failure with hypoxia Status: Acute Assessment and Plan: Acute Respiratory failure secondary to COVID-19 pneumonia and severe baseline COPD with FEV1 of 0.56 L which is 31% predicted and severe panlobular emphysema on her CT scan. 02/28 BiPAP 03/02 intubated 03/03 ET tube exchanged due to cuff leak Continue full mechanical ventilation support to prevent hypoxemia/hypercarbia and end organ damage. Chest x-ray showed worsening opacities in the right lower lobe ABGs reviewed, likely related to respiratory acidosis, increase rate to 32 Patient is on peep of 14 and 75% FiO2 which was increased to 100% as O2 sats were not reading and patient was getting mottled. Low tidal volume ventilation strategy to prevent volutrauma sedation with Versed and fentanyl. Nimbex had been ordered but patient arrested and made comfort measures prior to starting Nimbex. continue Bronchodilators Patient has been on Flolan Patient was in prone position for 16 hours and was just placed in supine position this morning. (3) COVID-19: Code(s): U07.1 - COVID-19 Status: Acute Assessment and Plan: Continue IV dexamethasone, remdesivir, Barcitinib SARS-CoV-2 PCR positive Patient is in Airborne, Droplet and Contact Isolation Follow inflammatory periodically (4) Acute renal insufficiency: Code(s): N28.9 - Disorder of kidney and ureter, unspecified Status: Acute Assessment and Plan: improved with initial IV fluids on presentation monitor urine output electrolytes and creatinine (5) Chronic obstructive pulmonary disease, unspecified: Qualifiers: COPD type: emphysema Emphysema type: unspecified Qualified Code(s): J43.9 - Emphysema, unspecified Code(s): J44.9 - Chronic obstructive pulmonary disease, unspecified Status: Acute Assessment and Plan: on dexamethasone and bronchodilators (6) Hypothyroidism, unspecified: Qualifiers: Hypothyroidism type: acquired Qualified Code(s): E03.9 - Hypothyroidism, unspecified Code(s): E03.9 - Hypothyroidism, unspecified Status: Acute Assessment and Plan: continue levothyroxine (7) Type 2 diabetes mellitus with other circulatory complications: Code(s): E11.59 - Type 2 diabetes mellitus with other circulatory complications Status: Acute Assessment and Plan: sliding scale insulin (8) Hypernatremia: Code(s): E87.0 - Hyperosmolality and hypernatremia Status: Acute Assessment and Plan: will start patient on D5 water and also on free water flushes recheck BMP tonight Additional Plan DVT prophylaxis - subQ heparin Stress ulcer prophylaxis - Pepcid Nutrition -tube feeds were held Discussed with and daughter at bedside post cardiac arrest, day of decided to make her comfort measures, DNR and withdraw support. Code Status - decided to make the patient comfort measures and DNR status. Total Critical Care Time -49 minutes Due to a high probability of clinically significant, life threatening deterioration, the patient required my highest level of preparedness to intervene emergently and I personally spent this critical care time directly and personally managing the patient. This critical care time included obtaining a history; examining the patient; pulse oximetry; ordering and review of studies; arranging urgent treatmen
--- NOTE | 2021-03-04 11:21 | PM.DDS ---
Discharge Summary Date and Time Date of : 03/04/21 Time of : 09:35 Provider Pronounced By: WILMAN PAT RN AND ZOE BRENNAN RN Probable Cause of Probable Cause of : Covid pneumonia Summary Hospital Course: Patient had a PEA arrest, likely related to hypoxia, hypotension, decreased perfusion/oxygenation, hypotension, worsening of COPD and COVID pneumonia -ACLS protocol was initiated, ROSC was achieved, - and daughter decided to make the patient a DNR and comfort measures with withdrawal of support. patient on 03/04/2021 at 9:35am Additional Data Confirmation of as documented by pronouncing clinician: Pupillary Reflex, Palpable Pulses, Response to Stimuli, Heart Tones and Breath Sounds Family: contacted Name of Provider Notified: DR. JONES Time Provider Notified: 09:40 Was code activated?: Yes Provider Requests Autopsy: No Family Requests Autopsy: No Radio Time Sales Supervisor Notified: Yes Date [facility] Notified of : 03/04/21 Time [facility] Notified of : 09:52 Advance directives: No Hospice patient?: No
== END 2021-03-04 09:35 | disposition expired | DRG 208 ==
LOC: ANHED 05:37 → ANHIMU 06:21 → ANHICU 03-08 11:38 → ANHIMU 03-08 11:38
PROVIDERS: Internal Medicine; Internal Medicine Pulmonary Disease; Nurse Practitioner Adult Health; Admitting Provider Internal Medicine; Emergency Provider Emergency Medicine; PCP Internal Medicine; Visit Provider Family Medicine
DX: U07.1 COVID-19 (principal); J96.21 Acute and chronic respiratory failure with hypoxia; J12.82 Pneumonia due to coronavirus disease 2019; N17.9 Acute kidney failure, unspecified; E87.2 Acidosis; E87.0 Hyperosmolality and hypernatremia; I12.9 Hypertensive chronic kidney disease with stage 1 through stage 4 chronic kidney disease, or unspecified chronic kidney disease; I46.9 Cardiac arrest, cause unspecified; E11.22 Type 2 diabetes mellitus with diabetic chronic kidney disease; N18.30 Chronic kidney disease, stage 3 unspecified; E11.59 Type 2 diabetes mellitus with other circulatory complications; J43.1 Panlobular emphysema; E03.9 Hypothyroidism, unspecified; R79.89 Other specified abnormal findings of blood chemistry; K21.00 Gastro-esophageal reflux disease with esophagitis, without bleeding; E11.69 Type 2 diabetes mellitus with other specified complication; E78.5 Hyperlipidemia, unspecified; M15.9 Polyosteoarthritis, unspecified; G47.14 Hypersomnia due to medical condition; E55.9 Vitamin D deficiency, unspecified; Z66 Do not resuscitate; Z79.899 Other long term (current) drug therapy; Z99.81 Dependence on supplemental oxygen; Z87.891 Personal history of nicotine dependence; Z88.2 Allergy status to sulfonamides; Z88.8 Allergy status to other drugs, medicaments and biological substances
CPT/HCPCS: 31500; 36415; 36569; 36600; 51701; 70450; 71045; 78580; 80048; 80053; 81001; 82375; 82565; 82728; 82805; 82948; 83036; 83050; 83605; 83615; 83735; 83880; 84100; 84460; 85025; 85027; 85055; 85380; 85610; 85730; 86140; 87040; 87086; 87426; 92950; 93005; 93306; 94002; 94003; 94640; 96361; 96374; 96375; 99291; A9270; A9540; C1751; C9803; G0378; J0330; J1100; J1644; J1815; J2060; J2250; J2270; J3010; J7030; J7070